=== PATIENT | female | born 1970 | race Caucasian/White ===

== ENCOUNTER → 2020-03-28 15:06 | Outpatient (BNVA) | payer OTHER, SELFPAY | PROVIDERS: PCP Internal Medicine; Referring Provider Internal Medicine; Visit Provider Internal Medicine Pulmonary Disease | DX: Z76.89 Persons encountering health services in other specified circumstances (principal) ==

== ENCOUNTER → 2020-08-02 15:04 | Outpatient (BNVA) | payer OTHER, SELFPAY | PROVIDERS: PCP Internal Medicine; Visit Provider Internal Medicine Pulmonary Disease ==

== ENCOUNTER 2020-10-18 13:05 | Outpatient (REF) | payer OTHER, SELFPAY ==
--- NOTE | ~2020-10-18 | CT_ITS ---
EXAMINATION: CT CHEST SCREENING CLINICAL INFORMATION: Nicotine dependence. COMPARISON: None. TECHNIQUE: Multidetector volumetric CT imaging of the chest is performed without contrast using low dose technique. Additional 2-D coronal and sagittal reformatted images and axial 3-D maximum intensity projection (MIP) images are generated on the CT workstation. This CT examination was performed using dose optimization techniques as appropriate, variously including the following: *Automated exposure control *Adjustment of mA and/or kV according to patient size (this includes techniques or standardized protocols for targeted exams where dose is matched to indication/reason for exam; i.e. extremities or head) *Use of iterative reconstruction technique DLP: 67 mGy-cm FINDINGS: LUNGS: The lungs are well expanded and clear of acute pneumonic process. There is a 3 mm nodule right upper lobe axial image 19/4, 3 mm nodule right upper lobe centrally image 16/4, and 2 mm nodule posteriorly in right upper lobe image 23/4. There is a punctate 2 mm nodule right upper lobe image 209/6, 3 mm nodule right middle lobe axial image 255/6, 6 mm nodule right middle lobe axial image 262/6, and several 2 mm nodules and less in both lower lobes. There is mild left major fissure thickening. A small cyst is seen in the superior segment right lower lobe. MEDIASTINUM: The thyroid lobes are symmetrical and normal. The central trachea and the bronchi are widely patent. The heart size and great vessels are normal caliber. There is no pericardial effusion. No abnormal mediastinal or hilar lymph nodes seen. PLEURA: There is no pleural effusion. No pleural mass or thickening. AXILLA: Small shotty lymph nodes seen in the axilla. UPPER ABDOMEN: Visualized liver, spleen, pancreas and bilateral adrenal glands are unremarkable. The gallbladder has been surgically removed. OSSEOUS STRUCTURES: No lytic or sclerotic process seen. CT/CT lung screening IMPRESSION: Multiple bilateral pulmonary nodules measuring 6 mm and less. ASSESSMENT: Lung-RADS category 2: Benign. RECOMMENDATION: Low dose annual CT chest.
== END 2020-10-18 13:06 | disposition home or self-care (01) ==
LOC: HO.CT 13:05
PROVIDERS: PCP Internal Medicine; Visit Provider Physician Assistant Medical
DX: Z12.2 Encounter for screening for malignant neoplasm of respiratory organs (principal); Z87.891 Personal history of nicotine dependence
CPT/HCPCS: 71271

== ENCOUNTER 2020-11-20 15:26 | Outpatient (REF) | payer OTHER, SELFPAY ==
--- NOTE | ~2020-11-20 | US_ITS ---
EXAMINATION: PELVIC ULTRASOUND CLINICAL INFORMATION: Postmenopausal bleeding COMPARISON: None TECHNIQUE: Transabdominal and transvaginal pelvic ultrasound was performed. Transvaginal exam was performed for better visualization of the uterus and ovaries. FINDINGS: The uterus is anteverted and measures 7.3 x 3.6 x 5.5 cm in dimension. No focal uterine lesion is seen. The endometrium is thickened for a postmenopausal patient measuring 0.9 cm. The endometrium is slightly heterogeneous. The ovaries are not seen. There is no fluid in the pelvis. US/US pelvic and transvaginal IMPRESSION: Abnormally thickened endometrium for a postmenopausal patient. Ovaries not seen.
== END 2020-11-20 15:27 | disposition home or self-care (01) ==
LOC: HO.US 15:26
PROVIDERS: Visit Provider Advanced Practice Midwife
DX: N95.0 Postmenopausal bleeding (principal)
CPT/HCPCS: 76830; 76856

== ENCOUNTER 2020-11-30 14:03 | Outpatient (REF) | payer OTHER, SELFPAY ==
--- NOTE | ~2020-11-30 | MM_ITS ---
EXAMINATION: MM SCREENING DIGITAL BREAST TOMOSYNTHESIS, BILATERAL CLINICAL INFORMATION: Screening. Asymptomatic. The lifetime risk of breast cancer based on the Tyrer-Cuzick Model is 7%. COMPARISON: Mammography: 01/23/2016, 06/29/2014, 11/15/2011 TECHNIQUE: Digital breast tomosynthesis is performed in both the craniocaudal and mediolateral oblique views along with computer-aided detection (CAD). Synthesized 2D images are generated from the tomosynthesis. FINDINGS: There are scattered areas of fibroglandular density (ACR BI-RADS breast composition Category b). There are no significant masses, abnormal calcifications, or other abnormalities. There is no developing density. No architectural abnormality. The axilla and skin contours are unremarkable. No significant changes. MM/MM tomosynthesis screening BI IMPRESSION: No mammographic evidence of malignancy. ASSESSMENT: BI-RADS 1: Negative RECOMMENDATION: Routine annual mammography screening. This patient's information was entered into a reminder system with a target due date for their next mammogram.
== END 2020-11-30 14:04 | disposition home or self-care (01) ==
LOC: HO.MAMMO 14:03
PROVIDERS: PCP Internal Medicine; Visit Provider Advanced Practice Midwife
DX: Z12.31 Encounter for screening mammogram for malignant neoplasm of breast (principal)
CPT/HCPCS: 77063; 77067

== ENCOUNTER → 2020-12-05 15:37 | Outpatient (BNVA) | payer OTHER, SELFPAY | PROVIDERS: PCP Internal Medicine; Visit Provider Internal Medicine Pulmonary Disease ==

== ENCOUNTER 2021-01-17 08:04 | Outpatient (REF) | payer OTHER, SELFPAY ==
[2021-01-20 03:56] LABS: HPV mRNA E6/E7 rflx Not Detected (Not Detected)
== END 2021-01-17 08:05 | disposition home or self-care (01) ==
LOC: HO.LAB 08:04
PROVIDERS: PCP Internal Medicine; Visit Provider Obstetrics & Gynecology
DX: Z01.411 Encounter for gynecological examination (general) (routine) with abnormal findings (principal); Z11.51 Encounter for screening for human papillomavirus (HPV); N95.0 Postmenopausal bleeding
CPT/HCPCS: 58100; 87624; 88142; 88305

== ENCOUNTER → 2021-02-13 13:58 | Outpatient (BNVA) | payer OTHER, SELFPAY | PROVIDERS: PCP Internal Medicine; Visit Provider Obstetrics & Gynecology ==

== ENCOUNTER → 2021-06-12 15:23 | Outpatient (BNVA) | payer OTHER, SELFPAY | PROVIDERS: PCP Internal Medicine; Visit Provider Internal Medicine Pulmonary Disease ==

== ENCOUNTER → 2022-07-02 13:07 | Outpatient (BNVA) | payer OTHER, SELFPAY | PROVIDERS: PCP Internal Medicine; Visit Provider Internal Medicine Pulmonary Disease | DX: Z13.89 Encounter for screening for other disorder (principal) ==

== ENCOUNTER → 2022-09-24 10:24 | Outpatient (BNVA) | payer OTHER, SELFPAY | PROVIDERS: PCP Internal Medicine; Visit Provider Surgery | DX: S80.12XA Contusion of left lower leg, initial encounter (principal) | CPT/HCPCS: 10021; 10160 ==

== ENCOUNTER 2022-11-25 15:00 | Outpatient (REF) | payer OTHER, SELFPAY | END 2022-11-25 15:01 | disposition home or self-care (01) | LOC: HO.MRI 15:00 | PROVIDERS: PCP Internal Medicine; Visit Provider Internal Medicine | DX: Z13.89 Encounter for screening for other disorder (principal) ==

== ENCOUNTER 2022-12-19 13:44 | Outpatient (REF) | payer OTHER, SELFPAY ==
--- NOTE | ~2022-12-19 | MR_ITS ---
EXAMINATION: MR ABDOMEN WITHOUT AND WITH CONTRAST CLINICAL INFORMATION: Hepatic lesion, follow-up. COMPARISON: Chest CT dated 10/18/2020. TECHNIQUE: MR abdomen was performed without and with use of 10 mL intravenous gadolinium gadolinium contrast. Postcontrast images are performed in multiphase dynamic sequences. Imaging was performed in 3 planes. FINDINGS: LUNG BASES: The visualized lung bases are unremarkable. LIVER: Steatosis. GALLBLADDER, AND BILIARY TREE: Status post cholecystectomy. No significant biliary ductal dilatation. PANCREAS: Unremarkable. SPLEEN: Unremarkable. ADRENAL GLANDS: Unremarkable. KIDNEYS AND URETERS: The kidneys are normal in size, shape, and enhance symmetrically. No hydronephrosis. No perinephric stranding. GASTROINTESTINAL TRACT: No bowel obstruction. No ascites or fluid collection. ABDOMINAL WALL: Very small fat-containing umbilical hernia without associated abnormality. LYMPH NODES: No lymphadenopathy. VASCULAR: Unremarkable. OSSEOUS STRUCTURES: Mild degenerative disc disease at L5-S1. No acute/suspicious abnormality. MR/MR abdomen wo/w con IMPRESSION: 1. Hepatic steatosis. No other significant abnormality. 2. Small fat-containing umbilical hernia without associated abnormality.
[2022-12-19] MEDS: gadobutroL 10 ML VIAL IVPUSH (14:31)
== END 2022-12-19 13:45 | disposition home or self-care (01) ==
LOC: HO.MRI 13:44
PROVIDERS: PCP Internal Medicine; Visit Provider Internal Medicine
DX: R16.0 Hepatomegaly, not elsewhere classified (principal)
CPT/HCPCS: 74183; A9585

== ENCOUNTER 2023-01-10 13:11 | Outpatient (AMB) | payer OTHER, SELFPAY ==
[2023-01-10 13:13] VITALS: BP 102/52; PULSE 104; O2SAT 93; BMI 39.8
--- NOTE | 2023-01-10 13:13 | A.OFFVIS_ITS ---
Intake Vital Signs 01/10/23 13:13 Height 5 ft 1 in Weight 210 lb 8.663 oz BMI 39.8 BP 102/52 L Blood Pressure Location Lt brachial Position Sitting Pulse 104 H Pulse Source Doppler Pulse Oximetry (%) 93 Oxygen Delivery Method Room Air Intake Visit Reasons: Asthma Allergies codeine Allergy (Unknown, Verified 01/10/23 13:16) Unknown fluticasone [Advair Diskus] Allergy (Unknown, Verified 01/10/23 13:16) Unknown penicillin V Allergy (Unknown, Verified 01/10/23 13:16) Unknown salmeterol [Advair Diskus] Allergy (Unknown, Verified 01/10/23 13:16) Unknown varenicline Allergy (Unknown, Verified 01/10/23 13:16) Unknown strawberry Allergy (Mild, Uncoded 09/24/22 10:32) Hives lobster Allergy (Uncoded 09/29/20 13:08) Unknown HPI Asthma HPI Details 52-year-old lady active 30 pack-year smo ker followed for underlying mod erate asthma/COPD overlap syndrome.? She has been using Spiriva and Symbicort 160 with good baseline control of her symptoms.? Over the last week she has developed cough productive of yellowish sputum with worsening symptomatic control. [facility] Medical History (Updated 01/10/23 @ 13:25 by Jakub Varela MD) Cholesteatoma Hyperlipidemia Diabetes mellitus type 2, diet-controlled Chronic obstructive pulmonary disease, unspecified Personal history of nicotine dependence Environmental allergies Asthma-COPD overlap syndrome Surgical History (Updated 09/24/22 @ 10:48 by Betito Brown MD) Tubal ligation status Hx of section History of colposcopy with cervical biopsy (~2015) History of cholecystectomy (~1993) Family History Mother Uterine cancer Bone cancer Sister Uterine cancer Social History (Updated 01/10/23 @ 13:17 by MARICRUZ Servin) Alcohol intake: current Alcohol intake frequency: does not drink Patient Tobacco Use Status: Current everyday Tobacco user Tobacco use type: Cigarette Cigarette Packs Per Day: 1 Years Smoked: 34 yrs Female Reproductive History Menstrual Age of Menarche: 10 Review of Systems Const Denies daytime sleepiness, Denies excessive sweating, Denies fatigue, Denies fever(s), Denies lethargy, Denies malaise, Denies night sweats, Denies snoring and Denies weight loss Eyes Denies blurry vision and Denies itchy eyes ENT Denies nasal congestion, Denies post nasal drip, Denies sinus pain, Denies sinus pressure and Denies other ( Thrush) Card Denies chest pain, Denies pedal edema, Denies dyspnea, Denies orthopnea and Denies paroxysmal nocturnal dyspnea Resp Reports cough, Denies hemoptysis, Reports excessive phlegm production, Denies dyspnea, Denies snoring and Denies wheezing GI Denies abdominal pain and Denies heartburn Musc Denies myalgias, Denies arthralgias and Denies joint swelling Skin/Breast Denies rash Neuro Denies memory loss and Denies seizure-like activity Psych Denies abnormal sleep pattern, Denies anxiety and Denies memory loss Endo Denies excessive sweating, Denies fatigue and Denies heat intolerance Pepe/Lymph Denies easy bruising Aller/Immun Denies itchy eyes, Denies seasonal rhinorrhea and Denies wheezing Physical Exam Vital Signs: Last Vital Signs Pulse 104 H 01/10/23 13:13 BP 102/52 L 01/10/23 13:13 Pulse Ox 93 01/10/23 13:13 Oxygen Delivery Method Room Air 01/10/23 13:13 BMI result Body Mass Index 39.8 Const General: no acute distress and alert Nutritional Appearance: not obese Orientation/consciousness: Other orientation findings ( oriented) HEENT Head: Yes atraumatic Eyes General: appearance normal, both eyes and all related structures Sclerae: sclerae normal EOM: EOMs intact bilaterally Neck Neck: Yes supple Lymphatic: no lymphadenopathy noted Resp Effort & Inspection: normal respiratory effort and no use of accessory muscles Auscultation: clear to auscultation bilaterally Cardio Rate: regular rate Rhythm: regular rhythm Heart sounds: no gallops, no murmurs and no rubs Skin General skin exam: other ( warm) Extrem General: No clubbing, No cyanosis and No edema Assessment & Plan Assessment & Plan (1) Asthma-COPD overlap syndrome: Code(s): J44.9 - Chronic obstructive pulmonary disease, unspecified Plan: Baseline controlled on Symbicort, Spiriva, and albuterol MDI. Continue current regimen. Now with an acute exacerbation, will treat with a course of azithromycin. (2) Pulmonary nodules: Code(s): R91.8 - Other nonspecific abnormal finding of lung field Plan: Results of lung strain CT reviewed, no worrisome nodules at this time. Continue with yearly screening, next in September of 2023. Medications: New azithromycin For 250 mg dose pack: take 500 mg today (day 1), then 250 mg for 4 days (days 2-5) PO 6 tabs 0RF Coding Level of Care Code Est Pt Level 4 (72046) Diagnoses Asthma-COPD overlap syndrome J44.9 Pulmonary nodules R91.8
== END 2023-01-10 13:24 | disposition home or self-care (01) ==
PROVIDERS: PCP Internal Medicine; Visit Provider Internal Medicine Pulmonary Disease
DX: J44.9 Chronic obstructive pulmonary disease, unspecified (principal); R91.8 Other nonspecific abnormal finding of lung field
CPT/HCPCS: 99214

== ENCOUNTER → 2023-01-10 13:11 | Outpatient (BNVA) | payer OTHER, SELFPAY | PROVIDERS: PCP Internal Medicine; Visit Provider Internal Medicine Pulmonary Disease ==

== ENCOUNTER 2023-07-15 13:07 | Outpatient (AMB) | payer OTHER, SELFPAY ==
[2023-07-15 13:10] VITALS: BP 104/62; PULSE 100; O2SAT 93; BMI 39.2
--- NOTE | 2023-07-15 13:10 | MHC.OFFVIS ---
Intake Vital Signs 07/15/23 13:10 Height 5 ft 1 in Weight 207 lb 3.752 oz BMI 39.2 BP 104/62 Blood Pressure Location Rt brachial Position Sitting Pulse 100 Pulse Source Doppler Pulse Oximetry (%) 93 Oxygen Delivery Method Room Air Intake Visit Reasons: Asthma Allergies codeine Allergy (Unknown, Verified 07/15/23 13:15) Unknown fluticasone [Advair Diskus] Allergy (Unknown, Verified 07/15/23 13:15) Unknown penicillin V Allergy (Unknown, Verified 07/15/23 13:15) Unknown salmeterol [Advair Diskus] Allergy (Unknown, Verified 07/15/23 13:15) Unknown varenicline Allergy (Unknown, Verified 07/15/23 13:15) Unknown strawberry Allergy (Mild, Uncoded 09/24/22 10:32) Hives lobster Allergy (Uncoded 09/29/20 13:08) Unknown HPI Asthma HPI Details 52-year-old lady active 30 pack-year smoker followed for underlying moderate asthma/COPD overlap syndrome.? She has been using Spiriva and Symbicort 160 with good baseline control of her symptoms.? She does complain of chronic bronchitic cough productive of whitish sputum. She denies an acute exacerbation. COUNT INCLUDES [facility] Medical History (Updated 01/10/23 @ 13:25 by Jakub Varela MD) Cholesteatoma Hyperlipidemia Diabetes mellitus type 2, diet-controlled Chronic obstructive pulmonary disease, unspecified Personal history of nicotine dependence Environmental allergies Asthma-COPD overlap syndrome Surgical History (Updated 09/24/22 @ 10:48 by Betito Brown MD) Tubal ligation status Hx of section History of colposcopy with cervical biopsy (~2015) History of cholecystectomy (~1993) Family History Mother Uterine cancer Bone cancer Sister Uterine cancer Social History Alcohol intake: current Alcohol intake frequency: does not drink Patient Tobacco Use Status: Current everyday Tobacco user Tobacco use type: Cigarette Cigarette Packs Per Day: 1 Years Smoked: 34 yrs Female Reproductive History Menstrual Age of Menarche: 10 Review of Systems Const Denies daytime sleepiness, Denies excessive sweating, Denies fatigue, Denies fever(s), Denies lethargy, Denies malaise, Denies night sweats, Denies snoring and Denies weight loss Eyes Denies blurry vision and Denies itchy eyes ENT Denies nasal congestion, Denies post nasal drip, Denies sinus pain, Denies sinus pressure and Denies other ( Thrush) Card Denies chest pain, Denies pedal edema, Denies dyspnea, Denies orthopnea and Denies paroxysmal nocturnal dyspnea Resp Reports cough, Denies hemoptysis, Denies excessive phlegm production, Denies dyspnea, Denies snoring and Denies wheezing GI Denies abdominal pain and Denies heartburn Musc Denies myalgias, Denies arthralgias and Denies joint swelling Skin/Breast Denies rash Neuro Denies memory loss and Denies seizure-like activity Psych Denies abnormal sleep pattern, Denies anxiety and Denies memory loss Endo Denies excessive sweating, Denies fatigue and Denies heat intolerance Pepe/Lymph Denies easy bruising Aller/Immun Denies itchy eyes, Denies seasonal rhinorrhea and Denies wheezing Physical Exam Vital Signs: Last Vital Signs Pulse 100 07/15/23 13:10 BP 104/62 07/15/23 13:10 Pulse Ox 93 07/15/23 13:10 Oxygen Delivery Method Room Air 07/15/23 13:10 BMI result Body Mass Index 39.2 Const General: no acute distress and alert Nutritional Appearance: obese Orientation/consciousness: Other orientation findings ( oriented) HEENT Head: Yes atraumatic Eyes General: appearance normal, both eyes and all related structures Sclerae: sclerae normal EOM: EOMs intact bilaterally Neck Neck: Yes supple Lymphatic: no lymphadenopathy noted Resp Effort & Inspection: normal respiratory effort and no use of accessory muscles Auscultation: clear to auscultation bilaterally Cardio Rate: regular rate Rhythm: regular rhythm Heart sounds: no gallops, no murmurs and no rubs Skin General skin exam: other ( warm) Extrem General: No clubbing, No cyanosis and No edema Assessment & Plan Assessment & Plan (1) Asthma-COPD overlap syndrome: Code(s): J44.9 - Chronic obstructive pulmonary disease, unspecified Plan: Well controlled on current regimen of Symbicort, Spiriva, and albuterol MDI. Continue current regimen. Chronic bronchitis, will treat with a course of azithromycin and put on azithromycin suppressive therapy. (2) Personal history of nicotine dependence: Comment: (Current smoker, onset 15, 1ppd x 35yrs, now 5-10cig/day, 35PYH) Code(s): Z87.891 - Personal history of nicotine dependence Plan: CT lung cancer screening ordered for September of 2023. Orders: Orders CT lung screening 10/15/23 Z87.891 - Personal history of nicotine dependence Medications: New azithromycin For 250 mg dose pack: take 500 mg today (day 1), then 250 mg for 4 days (days 2-5) PO 6 tabs 0RF azithromycin Suppressive regimen, start after finishing Z-pack. 250 mg PO MOWEFR 13 tabs 6RF 30 days Discontinued azithromycin Discontinued Reason: Doctor's Order For 250 mg dose pack: take 500 mg today (day 1), then 250 mg for 4 days (days 2-5) PO 6 tabs 0RF Coding Level of Care Code Est Pt Level 4 (58505) Diagnoses Asthma-COPD overlap syndrome J44.9 Personal history of nicotine dependence Z87.891
== END 2023-07-15 13:37 | disposition home or self-care (01) ==
PROVIDERS: PCP Internal Medicine; Visit Provider Internal Medicine Pulmonary Disease
DX: J44.9 Chronic obstructive pulmonary disease, unspecified (principal); Z87.891 Personal history of nicotine dependence
CPT/HCPCS: 99214

== ENCOUNTER → 2023-07-15 13:07 | Outpatient (BNVA) | payer OTHER, SELFPAY | PROVIDERS: PCP Internal Medicine; Visit Provider Internal Medicine Pulmonary Disease ==

== ENCOUNTER 2023-10-15 09:57 | Outpatient (REF) | payer OTHER, SELFPAY ==
--- NOTE | ~2023-10-15 | CT_ITS ---
EXAMINATION: CT LOW-DOSE SCREENING CHEST WITHOUT CONTRAST CLINICAL INFORMATION: Personal history of nicotine dependence. The patient is a current smoker with a 70 pack-year history of smoking. COMPARISON: CT chest 10/18/2020. TECHNIQUE: Multidetector volumetric CT imaging of the chest is performed on a Siemens SOMATOM Definition scanner without contrast using low dose technique. Additional 2D coronal and sagittal reformatted images and axial 3D maximum intensity projection (MIP) images are generated on the CT workstation. This CT examination was performed using dose optimization techniques as appropriate, variously including the following: *Automated exposure control. *Adjustment of mA and/or kV according to patient size (this includes techniques or standardized protocols for targeted exams where dose is matched to indication/reason for exam; i.e. extremities or head). *Use of iterative reconstruction technique. TOTAL EXAM DLP: 70 mGy-cm CTDIvol: 2.10 mGy FINDINGS: PULMONARY NODULES: A number of small pulmonary nodules are present, none larger than 4 mm (for example, right lower lobe 5:310 compare prior 5:307). Rubio images of all have been saved. No new, increasing-sized or suspicious pulmonary nodules seen. LUNGS: Lungs bilaterally symmetrically expanded. There is moderate emphysema and mild bronchial thickening. Plate-like atelectasis present along the major fissure in the left upper lobe as well as on top of the middle fissure in the right upper lobe. No effusion or pneumothorax. Central airways patent. MEDIASTINUM: No mediastinal, hilar or axillary adenopathy or free fluid collection. CORONARY ARTERY CALCIFICATION: None visualized on this study. THYROID GLAND: Unremarkable to the extent seen. CARDIOVASCULAR STRUCTURES: Aortic and heart size normal. No pericardial effusion. CHEST WALL/AXILLA: Unremarkable. UPPER ABDOMEN: There is hepatic steatosis. Spleen is enlarged at 12.3 cm. Status post cholecystectomy. Suspect hepatomegaly but the liver is not all included. OSSEOUS STRUCTURES: No suspicious focal findings. CT/CT lung screening IMPRESSION: 1. No evidence of pulmonary malignancy. There are small benign unchanged micronodules. 2. Incidental note made of emphysema, hepatic steatosis and mild splenomegaly. 3. Incidental findings (s category): No significant incidental findings. ASSESSMENT: Lung-RADS Category 2: Benign appearance or behavior of nodules. N/A. RECOMMENDATION: Continued routine annual low-dose CT lung screening in 1 year is recommended. An order for CT CHEST LOW DOSE CANCER SCREENING ([id number]) can be placed.
== END 2023-10-15 09:58 | disposition home or self-care (01) ==
LOC: HO.CT 09:57
PROVIDERS: PCP Internal Medicine; Visit Provider Internal Medicine Pulmonary Disease
DX: Z12.2 Encounter for screening for malignant neoplasm of respiratory organs (principal); Z87.891 Personal history of nicotine dependence
CPT/HCPCS: 71271

== ENCOUNTER 2023-11-17 19:00 | Outpatient (REF) | payer OTHER, SELFPAY ==
[2023-11-20 12:02] LABS: HPV mRNA E6/E7 Not Detected (Not Detected)
== END 2023-11-17 19:01 | disposition home or self-care (01) ==
LOC: HO.HHCLNP 19:00
PROVIDERS: Visit Provider Advanced Practice Midwife
DX: Z12.4 Encounter for screening for malignant neoplasm of cervix (principal)
CPT/HCPCS: 36415; 87624; 88175

== ENCOUNTER 2023-11-25 12:51 | Outpatient (REF) | payer OTHER, SELFPAY ==
--- NOTE | ~2023-11-25 | MM_ITS ---
EXAMINATION: MM SCREENING DIGITAL BREAST TOMOSYNTHESIS, BILATERAL CLINICAL INFORMATION: Screening. Asymptomatic. COMPARISON: Mammography: This study is compared with prior exams dating back to 2016. TECHNIQUE: Digital breast tomosynthesis is performed in both the craniocaudal and mediolateral oblique views along with computer-aided detection (CAD). Synthesized 2D images are generated from the tomosynthesis. FINDINGS: There are scattered areas of fibroglandular density (ACR BI-RADS breast composition Category b). There are no significant masses, abnormal calcifications, or other abnormalities. MM/MM tomosynthesis screening BI IMPRESSION: No mammographic evidence of malignancy. ASSESSMENT: BI-RADS BI-RADS 1 - Negative RECOMMENDATION: Routine annual mammography screening. 1 year F/U This examination should not preclude the clinical evaluation of a suspicious palpable abnormality. This patient's information was entered into a reminder system with a target due date for their next mammogram.
== END 2023-11-25 12:52 | disposition home or self-care (01) ==
LOC: HO.MAMMO 12:51
PROVIDERS: PCP Internal Medicine; Visit Provider Advanced Practice Midwife
DX: Z12.31 Encounter for screening mammogram for malignant neoplasm of breast (principal)
CPT/HCPCS: 77063; 77067

== ENCOUNTER → 2023-11-25 13:00 | Outpatient (BNV) | payer OTHER, SELFPAY | PROVIDERS: PCP Internal Medicine; Visit Provider Radiology Diagnostic Radiology | DX: Z12.31 Encounter for screening mammogram for malignant neoplasm of breast (principal) | CPT/HCPCS: 77063; 77067 ==

== ENCOUNTER 2024-01-21 13:32 | Outpatient (AMB) | payer OTHER, SELFPAY ==
[2024-01-21 13:40] VITALS: BP 106/67; PULSE 110; O2SAT 92; BMI 39.2
--- NOTE | 2024-01-21 13:40 | A.OFFVIS_ITS ---
Vital Signs 01/21/24 13:40 Height 5 ft 1 in Weight 207 lb 3.752 oz BMI 39.2 BP 106/67 Blood Pressure Location Lt brachial Position Sitting Pulse 110 H Pulse Source Doppler Pulse Oximetry (%) 92 Oxygen Delivery Method Room Air Intake Visit Reasons: Asthma Allergies codeine Allergy (Unknown, Verified 07/15/23 13:15) Unknown fluticasone [Advair Diskus] Allergy (Unknown, Verified 07/15/23 13:15) Unknown penicillin V Allergy (Unknown, Verified 07/15/23 13:15) Unknown salmeterol [Advair Diskus] Allergy (Unknown, Verified 07/15/23 13:15) Unknown varenicline Allergy (Unknown, Verified 07/15/23 13:15) Unknown strawberry Allergy (Mild, Uncoded 09/24/22 10:32) Hives lobster Allergy (Uncoded 09/29/20 13:08) Unknown HPI HPI Asthma: Details: 52-year-old lady active 30 pack-year smoker followed for underlying moderate asthma/COPD overlap syndrome.? She has been using Spiriva and Symbicort 160 previously with good baseline control of her symptoms until she had ran out of Symbicort and now his symptoms are not as well controlled. Though, she denies an acute exacerbation. She has been using suppressive azithromycin with good control of her chronic bronchitis. [facility] Medical History (Updated 01/10/23 @ 13:25 by Jakub Varela MD) Cholesteatoma Hyperlipidemia Diabetes mellitus type 2, diet-controlled Chronic obstructive pulmonary disease, unspecified Personal history of nicotine dependence Environmental allergies Asthma-COPD overlap syndrome Surgical History (Updated 09/24/22 @ 10:48 by Betito Brown MD) Tubal ligation status Hx of section History of colposcopy with cervical biopsy (~2015) History of cholecystectomy (~1993) Family History Mother Uterine cancer Bone cancer Sister Uterine cancer Social History Alcohol intake: current Alcohol intake frequency: does not drink Patient Tobacco Use Status: Current everyday Tobacco user Tobacco use type: Cigarette Cigarette Packs Per Day: 1 Years Smoked: 35 yrs Female Reproductive History Menstrual Age of Menarche: 10 Review of Systems Const Denies daytime sleepiness, Denies excessive sweating, Denies fatigue, Denies fever(s), Denies lethargy, Denies malaise, Denies night sweats, Denies snoring and Denies weight loss Eyes Denies blurry vision and Denies itchy eyes ENT Denies nasal congestion, Denies post nasal drip, Denies sinus pain, Denies sinus pressure and Denies other ( Thrush) Card Denies chest pain, Denies pedal edema, Denies dyspnea, Denies orthopnea and Denies paroxysmal nocturnal dyspnea Resp Denies cough, Denies hemoptysis, Denies excessive phlegm production, Denies dyspnea, Denies snoring and Denies wheezing GI Denies abdominal pain and Denies heartburn Musc Denies myalgias, Denies arthralgias and Denies joint swelling Skin/Breast Denies rash Neuro Denies memory loss and Denies seizure-like activity Psych Denies abnormal sleep pattern, Denies anxiety and Denies memory loss Endo Denies excessive sweating, Denies fatigue and Denies heat intolerance Pepe/Lymph Denies easy bruising Aller/Immun Denies itchy eyes, Denies seasonal rhinorrhea and Denies wheezing Physical Exam Vital Signs: Last Vital Signs Pulse 110 H 01/21/24 13:40 BP 106/67 01/21/24 13:40 Pulse Ox 92 01/21/24 13:40 Oxygen Delivery Method Room Air 01/21/24 13:40 BMI result Body Mass Index 39.2 Const General: no acute distress and alert Nutritional Appearance: obese Orientation/consciousness: Other orientation findings ( oriented) HEENT Head: Yes atraumatic Eyes General: appearance normal, both eyes and all related structures Sclerae: sclerae normal EOM: EOMs intact bilaterally Neck Neck: Yes supple Lymphatic: no lymphadenopathy noted Resp Effort & Inspection: normal respiratory effort and no use of accessory muscles Auscultation: rales bilateral Cardio Rate: regular rate Rhythm: regular rhythm Heart sounds: no gallops, no murmurs and no rubs Skin General skin exam: other ( warm) Extrem General: No clubbing, No cyanosis and No edema Assessment & Plan Assessment & Plan (1) Asthma-COPD overlap syndrome: Code(s): J44.9 - Chronic obstructive pulmonary disease, unspecified Category: Medical Plan: suboptimal control as patient has ran out of Symbicort. Restart Symbicort. Continue Spiriva and albuterol MDI /duo nebs. Continue suppressive azithromycin. (2) Personal history of nicotine dependence: Comment: (Current smoker, onset 15, 1ppd x 35yrs, now 5-10cig/day, 35PYH) Code(s): Z87.891 - Personal history of nicotine dependence Category: Medical Plan: Results of lung cancer screening CT chest from September of 2023 reviewed, no worrisome pulmonary nodules. Continue with yearly screening, next in September of 2024. Medications: New ipratropium-albuterol 0.5 mg-3 mg(2.5 mg base)/3 mL 3 mL inhalation Q4-6H PRN 180 mL 6RF wheezing Refilled budesonide-formoterol 160-4.5 mcg/actuation (Symbicort) 2 puffs inhalation BID 10.2 ea 6RF Coding Level of Care Code Est Pt Level 4 (49376) Diagnoses Asthma-COPD overlap syndrome J44.9 Personal history of nicotine dependence Z87.891
== END 2024-01-21 13:53 | disposition home or self-care (01) ==
PROVIDERS: PCP Internal Medicine; Visit Provider Internal Medicine Pulmonary Disease
DX: J44.9 Chronic obstructive pulmonary disease, unspecified (principal); Z87.891 Personal history of nicotine dependence
CPT/HCPCS: 99214

== ENCOUNTER → 2024-01-21 13:32 | Outpatient (BNVA) | payer OTHER, SELFPAY | PROVIDERS: PCP Internal Medicine; Visit Provider Internal Medicine Pulmonary Disease ==

== ENCOUNTER 2024-01-22 14:21 | Outpatient (REF) | payer OTHER, SELFPAY ==
[2024-01-22 18:53] LABS: MANUAL DIFF FLAG NO
[2024-01-22 18:57] LABS: Basophils Absolute Auto 0.1 X10*3/uL (0.0-0.2); Basophils Percent Auto 0.7 % (0-2); Eosinophils Absolute Auto 0.2 X10*3/uL (0.0-0.4); Eosinophils Percent Auto 1.9 % (0-4); Hematocrit 50.4 % (37.0-47.0); Hemoglobin 17.3 g/dl (12.0-16.0); Imm Gran Abs Auto 0.08 X10*3/uL (0.00-0.03); Imm Gran Pct Auto 0.7 % (0.0-0.4); Lymphocytes Percent Auto 25.1 % (20-40); Mean Corpuscular HGB Conc 34.3 g/dl (31.0-35.0); Mean Corpuscular Hemoglobin 31.5 pg (27.0-33.0); Mean Corpuscular Volume 91.8 fL (80.0-98.0); Monocytes Absolute Auto 0.8 X10*3/uL (0.1-1.2); Monocytes Percent Auto 6.7 % (2-11); Neutrophils Absolute Auto 7.6 x10*3/uL (2.0-8.3); Neutrophils Percent Auto 64.9 % (45-73); Platelet Count 441 X10*3/uL (160-400); Red Blood Count 5.49 X10*6/uL (4.20-5.50); Red Cell Distribution Width 13.3 % (11.0-16.0); White Blood Count 11.7 X10*3/uL (4.8-10.8)
[2024-01-22 19:15] LABS: Alanine Aminotransferase 21 U/L (0-31); Albumin Level 4.4 g/dL (3.5-5.0); Alkaline Phosphatase 84 U/L (39-117); Anion Gap 13 (12-20); Aspartate Amino Transferase 19 U/L (5-31); Bilirubin Total 0.4 mg/dL (0.0-1.0); Blood Urea Nitrogen 20 mg/dL (9-16); Carbon Dioxide 25 mmol/L (22-29); Chloride 103 mmol/L (96-108); Cholesterol 164 mg/dL (<200); Estimated Glomerular Filt Rate > 60; Glucose Random 192 mg/dL (60-115); HDL Cholesterol 35 mg/dL (>40); LDL Cholesterol Calculated 97 mg/dL (<100); Magnesium 1.9 mg/dL (1.6-2.6); Potassium 4.3 mmol/L (3.3-5.1); Sodium 137 mmol/L (135-145); Total Protein 7.9 g/dL (6.5-8.0); Triglycerides 164 mg/dL (<150)
[2024-01-22 19:31] LABS: Microalbum/Creatinine Ratio Ur 11.9 ug/mg cr (<30)
[2024-01-22 19:31] LABS: TSH reflex Free T4 0.98 uIU/mL (0.32-4.0); Vitamin D 25-OH Total 38.7 ng/mL (>30)
[2024-01-22 19:39] LABS: Vitamin B12 751 pg/mL (200-900)
== END 2024-01-22 14:22 | disposition home or self-care (01) ==
LOC: HO.CHCLDS 14:21
PROVIDERS: Visit Provider Internal Medicine
DX: R53.83 Other fatigue (principal); E11.9 Type 2 diabetes mellitus without complications
CPT/HCPCS: 36415; 80053; 80061; 82043; 82306; 82570; 82607; 82746; 83735; 84443; 85025

== ENCOUNTER 2024-07-23 13:29 | Outpatient (AMB) | payer OTHER, SELFPAY ==
[2024-07-23 13:33] VITALS: BP 96/60; PULSE 101; O2SAT 93; BMI 37.0
--- NOTE | 2024-07-23 13:33 | A.OFFVIS_ITS ---
Vital Signs 07/23/24 13:33 Height 5 ft 1 in Weight 196 lb BMI 37.0 BP 96/60 Blood Pressure Location Lt brachial Position Sitting Pulse 101 H Pulse Source Doppler Pulse Oximetry (%) 93 Oxygen Delivery Method Room Air Intake Visit Reasons: Asthma Allergies codeine Allergy (Unknown, Verified 07/23/24 13:37) Unknown fluticasone [Advair Diskus] Allergy (Unknown, Verified 07/23/24 13:37) Unknown penicillin V Allergy (Unknown, Verified 07/23/24 13:37) Unknown salmeterol [Advair Diskus] Allergy (Unknown, Verified 07/23/24 13:37) Unknown varenicline Allergy (Unknown, Verified 07/23/24 13:37) Unknown strawberry Allergy (Mild, Uncoded 09/24/22 10:32) Hives lobster Allergy (Uncoded 09/29/20 13:08) Unknown HPI HPI Asthma: Details: 53-year-old lady active 30 pack-year smoker followed for underlying moderate asthma/COPD overlap syndrome.? She has been using Spiriva, duo nebs, albuterol MDI, and Symbicort 160 with good control of her symptoms. She denies recent exacerbations. [facility] Medical History (Updated 01/10/23 @ 13:25 by Jakub Varela MD) Cholesteatoma Hyperlipidemia Diabetes mellitus type 2, diet-controlled Chronic obstructive pulmonary disease, unspecified Personal history of nicotine dependence Environmental allergies Asthma-COPD overlap syndrome Surgical History (Updated 09/24/22 @ 10:48 by Betito Brown MD) Tubal ligation status Hx of section History of colposcopy with cervical biopsy (~2015) History of cholecystectomy (~1993) Family History Mother Uterine cancer Bone cancer Sister Uterine cancer Social History Alcohol intake: current Alcohol intake frequency: does not drink Patient Tobacco Use Status: Current everyday Tobacco user Tobacco use type: Cigarette Cigarette Packs Per Day: 1 Years Smoked: 34 yrs Female Reproductive History Menstrual Age of Menarche: 10 Review of Systems Const Denies daytime sleepiness, Denies excessive sweating, Denies fatigue, Denies fever(s), Denies lethargy, Denies malaise, Denies night sweats, Denies snoring and Denies weight loss Eyes Denies blurry vision and Denies itchy eyes ENT Denies nasal congestion, Denies post nasal drip, Denies sinus pain, Denies sinus pressure and Denies other ( Thrush) Card Denies chest pain, Denies pedal edema, Denies dyspnea, Denies orthopnea and Denies paroxysmal nocturnal dyspnea Resp Denies cough, Denies hemoptysis, Denies excessive phlegm production, Denies dyspnea, Denies snoring and Denies wheezing GI Denies abdominal pain and Denies heartburn Musc Denies myalgias, Denies arthralgias and Denies joint swelling Skin/Breast Denies rash Neuro Denies memory loss and Denies seizure-like activity Psych Denies abnormal sleep pattern, Denies anxiety and Denies memory loss Endo Denies excessive sweating, Denies fatigue and Denies heat intolerance Pepe/Lymph Denies easy bruising Aller/Immun Denies itchy eyes, Denies seasonal rhinorrhea and Denies wheezing Physical Exam Vital Signs: Last Vital Signs Pulse 101 H 07/23/24 13:33 BP 96/60 07/23/24 13:33 Pulse Ox 93 07/23/24 13:33 Oxygen Delivery Method Room Air 07/23/24 13:33 BMI result Body Mass Index 37.0 Const General: no acute distress and alert Nutritional Appearance: obese Orientation/consciousness: Other orientation findings ( oriented) HEENT Head: Yes atraumatic Eyes General: appearance normal, both eyes and all related structures Sclerae: sclerae normal EOM: EOMs intact bilaterally Neck Neck: Yes supple Lymphatic: no lymphadenopathy noted Resp Effort & Inspection: normal respiratory effort and no use of accessory muscles Auscultation: clear to auscultation bilaterally Cardio Rate: regular rate Rhythm: regular rhythm Heart sounds: no gallops, no murmurs and no rubs Skin General skin exam: other ( warm) Extrem General: No clubbing, No cyanosis and No edema Assessment & Plan Assessment & Plan (1) Asthma-COPD overlap syndrome: Code(s): J44.9 - Chronic obstructive pulmonary disease, unspecified Category: Medical Plan: Well controlled on current regimen Spiriva, Symbicort, duo nebs, and albuterol MDI. Continue current regimen. (2) Personal history of nicotine dependence: Comment: (Current smoker, onset 15, 1ppd x 35yrs, now 5-10cig/day, 35PYH) Code(s): Z87.891 - Personal history of nicotine dependence Category: Medical Plan: Continue with yearly screening, next in September of 2024, ordered. Orders: Orders CT lung screening 10/23/24 Z87.891 - Personal history of nicotine dependence Coding Level of Care Code Est Pt Level 4 (35933) Diagnoses Asthma-COPD overlap syndrome J44.9 Personal history of nicotine dependence Z87.891
== END 2024-07-23 13:50 | disposition home or self-care (01) ==
LOC: HO.HPS 13:30
PROVIDERS: PCP Internal Medicine; Visit Provider Internal Medicine Pulmonary Disease
DX: J44.9 Chronic obstructive pulmonary disease, unspecified (principal); Z87.891 Personal history of nicotine dependence
CPT/HCPCS: 99214

== ENCOUNTER → 2024-07-23 13:29 | Outpatient (BNVA) | payer OTHER, SELFPAY | PROVIDERS: PCP Internal Medicine; Visit Provider Internal Medicine Pulmonary Disease | DX: J44.9 Chronic obstructive pulmonary disease, unspecified (principal); Z87.891 Personal history of nicotine dependence | CPT/HCPCS: 99212 ==

== ENCOUNTER 2024-10-18 13:00 | Outpatient (REF) | payer OTHER, SELFPAY ==
--- NOTE | ~2024-10-18 | CT_ITS ---
EXAMINATION: CT LUNG SCREENING HISTORY: Z87.891 - Personal history of nicotine dependence TECHNIQUE: Low dose axial images were obtained from the sternal notch to upper abdomen without IV contrast per standard departmental protocol. Sagittal and coronal reformatted images were also obtained and reviewed. One or more of the following techniques was used for dose reduction: Automated exposure control, adjustment of the mA and/or kV according to patient size, use of iterative reconstruction technique. DLP: 70 mGy-cm COMPARISON: Comparison is made with the prior examination dated 10/15/2023. FINDINGS: Lung nodules: There is new confluent airspace opacity in the left upper lobe with associated volume loss and shift of the cardiomediastinal silhouette to the left. There is irregular narrowing and abrupt occlusion of the left upper lobe bronchus, highly suspicious for a mass. Again seen are scattered 2-3 mm nodules in the right upper lobe (series 4, image 66), and in the right middle lobe (series 4, images 94 and 100). There is linear subsegmental atelectasis versus scarring in the right lower lobe. Emphysema: moderate Coronary Calcification: none Aortic Arch Calcification: mild Potentially Significant Incidentals : none Additional Chest Findings: There is no pleural or pericardial effusion. No mediastinal or axillary lymphadenopathy is identified. Visualized upper abdomen: The visualized portions of the liver, spleen, and adrenals have an unremarkable unenhanced appearance. CT/CT lung screening IMPRESSION: Findings highly suspicious for a left perihilar mass causing obstruction of the left upper lobe bronchus and post-obstructive atelectasis. Further evaluation with 3 month low-dose chest CT, PET/CT scan and/or bronchoscopy is recommended. Findings were sent to Dr. Jakub Varela by secure text message on 10/18/2024 at 2:17 PM and acknowledged as read at 2:19 pm. LUNG-RADS ASSESSMENT: Lung-RADS 4A: Suspicious MANAGEMENT: 3 month LDCT, PET/CT and/or bronchoscopy Category S: N/A Electronically signed by: Austin Soares MD 10/18/2024 02:21 PM EDT
--- OUTSIDE RECORDS SUMMARY | 2024-10-18 14:24 | XMS_ITS | Data Portability ---
Author Organization [facility]IS[facility] Patterson [facility], [address] Address [address] [place] [address] Assessment No assessment recorded. Plan of Treatment Reminders Order Date Submit Date Provider Last Modified By Organization Details Last Modified Time Details Appointments None recorded. Lab None recorded. Referral None recorded. Procedures None recorded. Surgeries None recorded. Imaging None recorded. Medication Orders doxycycline hyclate 100 mg tablet 2022 023 [facility] #[id number], [address] [facility], [place], [address], 14:08:16 Patient TargetsNo targets recorded. Patient Instructions Encounter Date Encounter Id Patient Instructions Last Modified By Organization Details Last Modified Time 10/23/2022 [id number] Acute Sinusitis: Care Instructions [email or web address] Not available 10/23/2022 14:08:14 Acute bronchitis is a common clinical condition characterized by an acute onset but persistent cough, with or without sputum production. It is typically self-limited, resolving within one to three weeks. Symptoms result from inflammation of the lower respiratory tract and are most frequently due to viral infection. Treatment is focused on patient education and supportive care. Antibiotics are not needed for the great majority of patients with acute bronchitis but are greatly overused for this condition. Reducing antibiotic use for acute bronchitis is a national and international health care priority. In most patients, the cough persists for 1 to 3 weeks, with a average duration of 18 days. The cough may be associated with either purulent or nonpurulent sputum production The presence of purulent sputum is a nonspecific finding and does not appear to be predictive of bacterial infection or that antibiotics are needed. For the great majority of patients, use of antibiotics does not hasten recovery or prevent complications but puts patients at increased risk of adverse effects including potentially severe complications such as Clostridioides difficile infection and anaphylaxis. Non-Pharmacological treatment for coughin. Throat lozenges 2. Hot tea 3. Honey 4. Smoking cessation 5. Avoidance of secondhand smoke. Pharmacological Treatment: 1. Robatussin or Guafenasin 2. Antihistamines 3. Dextromethoraphen I would plan on being seen again if any of the following symptoms develop: 1. Fever (100.5) 2. Shortness of breath 3. Wheezing 4. Worsening Cough. I would go to the ER if you develop: 1. Severe Shortness of breath 2. Chest Pain 3. Wheezing 4. Coughing up Blood [email or web address] Not available 10/23/2022 14:07:50 Reason for Referral None Reported. Problems Name Problem SNOMED Code Status Onset Date Resolution Date Notes Provider Name and Address Organization Details Recorded Time Hypertensive disorder 66160615 Active 2022 GERA robles, [place] - [facility] 13:26:41 Hyperlipidemia 99375899 Active 2022 GERA GUZMÁN null, [place] - [facility] 13:26:46 Asthma 781905332 Active 2022 GERA GUZMÁN null, [place] - [facility] 13:26:52 Chronic obstructive pulmonary disease 63701487 Active 2022 GERA GUZMÁN null, [place] - [facility] 13:26:57 Diabetes mellitus 75744172 Active 2022 GERA robles, [place] - [facility] 13:27:02 Problem Notes None recorded. Procedures Surgical History Date Name Laterality Status Provider Name and Address Organization Details Recorded Time cholecystectomy completed EGRA GUZMÁN PA - [facility] 10/23/2022 13:27:20 delivery completed GERA GUZMÁN PA - [facility] 10/23/2022 13:27:27 procedure on ear completed GERA GUZMÁN PA - [facility] 10/23/2022 13:27:31 Imaging Results None recorded. Procedure Notes None recorded. Medical Equipment None Reported. Allergies Allergen ID Allergen Name Allergen Category Reaction Reaction Severity Criticality Documentation Date Start Date Code Code System Note Provider Name and Address Organization Details Recorded Time 533152 Product containin g penicilli n (product) medicatio n Not available Not available Not available 10/23/2022 67026 8001 SNOMED GERA FARRELLLUKAS null, [place] - [facility] 13:23:59 468324 codeine medicatio n Not available Not available Not available 10/23/2022 2670 RxNorm GERA FARRELLLUKAS null, [place] - [facility] 13:24:03 243286 shellfish derived food,medi cation Not available Not available Not available 10/23/2022 61243 UNK GERA FARRELLLUKAS null, PA - [facility] 13:24:09 843657 strawberr y allergeni c extract food Not available Not available Not available 10/23/2022 68613 4 RxNorm GERA FARRELLLUKAS null, [place] - [facility] 13:24:34 711509 tree nut food Not available Not available Not available 10/23/2022 36347 UNKaci GUZMÁN null, PA - [facility] 13:24:39 Medications Name Sig Start Date Stop Date Status Note LastModified by Organization Details LastModified Time doxycycline hyclate 100 mg tablet Take 1 tablet twice a day by oral route for 10 days. 2022 active Not Available Not Available Not Avai lable loratadine active Not Available Not Av ailable Not Available simvastatin active Not Available Not A vailable Not Available lisinopril active Not Available Not Av ailable Not Available fenofibrate active Not Available Not A vailable Not Available ProAir HFA active Not Available Not Av ailable Not Available Symbicort active Not Available Not Millie ilable Not Available Spiriva Respimat active Not Available Not Available Not Available Flonase Allergy Relief active Not Available Not Available Not Available albuterol 90 mcg-budesoni de 80 mcg/actuatio n HFA aerosol inhaler Inhale by inhalation route. active Not Available Not Available No t Available Vitals Date Recorded Body height Body mass index (BMI) Body weight Oxygen saturation Oxygen saturation in Arterial blood by Pulse oximetry Heart rate Respiratory rate Body temperature Systolic blood pressure Diastolic blood pressure Provider Name and Address Organization Details Last Updated DateTime 152.4 cm 40.2 kg/m2 32881.0 3 g 95 % 95 % 91 /min 18 /min 98.1 [degF] 117 mm[Hg] 81 mm[Hg] [facility]ER[facility] 13:29:53 Social History Question Answer Notes LastModified by [employer] Details LastModified Time Tobacco Smoking Status Current Every Day Smoker [facility] 10/23/2022 13:27:50 Have You Had Direct Contact, Or Contact During Intimacy, With Monkeypox Rash, Scabs, Or Body Fluids From A Person With Monkeypox? No Information not available 10/23/2022 How Much Tobacco Do You Smoke? 1 PPD Information not available 10/23/2022 Have You Recently Traveled Abroad? No Information not available 10/23/2022 Sex: Unknown Functional Status Question Answer Note LastModified by [employer] Details LastModified Time Do you use any illicit or recreational drugs? No Information not available 10/23/2022 Do you or have you ever used any other forms of tobacco or nicotine? No Information not available 10/23/2022 What is your level of alcohol consumption? None Information not available 10/23/2022 Mental Status None recorded. Family History Relationship Description Onset Age of this Age Resolved Age Notes LastModified by Organization Details LastModified Time Father No current problems or disability Not available 09/27 13:27:05 Mother No current problems or disability Not available 09/27 13:27:05 Medical History No medical history recorded. Gynecological History Statement/Question Response Is there any chance of ? No Obstetrics History GPAL:G 0 P 0 0 0 0 Immunizations Vaccine Type Date Status Note Provider Nam e and Address Organization Details Recorded Time Influenza, split virus, quadrivalent, preservative 8 completed MALISSA [facility] 10/23/2022 13:24:56 COVID-19, mRNA, LNP-S, PF, 100 mcg/0.5mL dose or 50 mcg/0.25mL dose 2 completed GERA GOODHIND null, PA - [facility] 10/23/2022 13:24:56 COVID-19, mRNA, LNP-S, PF, 100 mcg/0.5mL dose or 50 mcg/0.25mL dose 1 completed GERA GOODHIND null, PA - [facility] 10/23/2022 13:24:56 COVID-19, mRNA, LNP-S, PF, 100 mcg/0.5mL dose or 50 mcg/0.25mL dose 1 completed GERA GOODHIND null, PA - [facility] 10/23/2022 13:24:56 Tdap 8 completed GERA GOODHIND null, PA - [facility] 10/23/2022 13:24:56 Tdap 2 completed GERA GOODHIND null, PA - [facility] 10/23/2022 13:24:56 Influenza, split virus, quadrivalent, PF 1 completed GERA GOODHIND null, PA - [facility] 10/23/2022 13:24:56 Influenza, split virus, quadrivalent, PF 6 completed GERA GOODHIND null, PA - [facility] 10/23/2022 13:24:56 Influenza, split virus, quadrivalent, PF 7 completed GERA GOODHIND null, PA - [facility] 10/23/2022 13:24:56 Influenza, split virus, quadrivalent, PF 9 completed GERA GOODHIND null, PA - [facility] 10/23/2022 13:24:56 Influenza, split virus, quadrivalent, PF 1 completed GERA GOODHIND null, PA - [facility] 10/23/2022 13:24:56 Past Encounters Encounter ID Performer Location Encounter Start Date Encounter Closed Date Diagnosis/Indication Diagnosis SNOMED-CT Code Diagnosis ICD10 Code Diagnosis Note [id number] [address] [place] [address] 07/15/2021 08:37:00 07/15/2021 09:40:01 [id number] [address] [place] [address] 11/07/2020 12:02:45 11/07/2020 13:16:13 [id number] [address] [place] [address] 06/03/2015 09:53:06 06/03/2015 10:48:33 [id number] [address] [place] [address] 11/28/2021 17:43:38 11/28/2021 19:38:38 [id number] [address] [place] [address] 05/01/2018 14:24:11 05/01/2018 15:18:15 [id number] [address] [place] [address] 02/15/2021 13:32:04 02/15/2021 15:44:30 [id number] MALISSA BRAND [address] [place] [address] 10/23/2022 12:05:57 10/23/2022 14:08:37 Acute sinusitis [id number] J01.90 Based on your presentati on and exam, you are being diagnosed with Sinusitis. Rhinosinus itis is most often viral and will resolve on its own in 7-10 days. Symptoms that last longer than 2 weeks an antibiotic could be considered . Based on your presentati on, and antibiotic was written. The following are my recommenda tions to help your symptoms and to allow your condition to improve:1. Drink plenty of fluids while you are ill- stay hydrated2. Rest - don't overexert yourself - this includes sports and any gym routines.3 . I suggest taking an antihistam ine - like Claritin, Zyrtec, or Benedryl4. If you take OTC cold medication I would recommend Adrianne-Selze r Cold/Cough .5. Mucinex with a lot of water is ok - if you are having trouble clearing your nasal passages of mucous. However, if you start to cough then discontinu e - this can increase coughing due to a watery post nasal drip.6. Saline Nasal Locust is recommende d. Since an antibiotic was prescribed you need to complete the full course - this is important so you don't develop any antibiotic resistance to future infections . I advise taking a Probiotic like Florastor since you are on an antibiotic - this will help you re-coloniz e your body with the good bacteria. Typically, it will take 6 months for you to restore your normal body dakota after an antibiotic . Don't hesitate to be seen again if you develop:1. Fever > 100.52. Worsening Headache3. Stiff Neck4. Worsening Cough or Shortness of breath5. Visual Changes. The antibiotic should start to work in 4-5 days. You may not notice immediate response. Thank you for using [facility] today, please feel free to contact our office if you have any questions or concerns. Health Concerns Section Related Observation LastModified by Organization Detai ls LastModified Time None Recorded Concern Status LastModified by Organization Details LastModified Time None Recorded Advance Directives Directive None Recorded Payers Insurance Date Sequence Insurance Name Policy Number Policy Deluna Covered Member ID Deluna Member ID Guarantor Name 10/23/2022 1 [facility] [id number] Amy Faustin [id number] Amy Faustin Notes Date Note Type Note Provider Name and Address Organization Details Recorded Time 10/23/2022 text/html Sinus Complaints UCReported bypatient.Location: facial pain;sinus pressure Associated Symptoms:no fever; no difficulty breathing; no nausea or vomiting;nasal discharge from both nostrils;sore throat;Post nasal drip;nasal passage blockage bilaterally;ear fullness;cough Onset/Timing:initia lly started 2weeks ago Quality:worsening Severity:mild Context:no recent sick contacts;recent upper respiratory infection;worse with seasonal allergen exposure Risk Factors:current smoking or tobacco use(+ COPD History currently as well.) Alleviating factors:nasal steroid Flonase; antihistamine loratadineNotes:The patient has as strong history of sinusitis secondary to the allergic rhinitis. DIet controlled diabetes. Did not tolerate Metformin. MALISSA BRAND [facility] [place], [address], [place] - [facility] 10/23/2022 22:24:45 OBGyn Episode No OBEpisode recorded.
== END 2024-10-18 13:01 | disposition home or self-care (01) ==
LOC: HO.CT 13:00
PROVIDERS: PCP Internal Medicine; Visit Provider Internal Medicine Pulmonary Disease
DX: Z12.2 Encounter for screening for malignant neoplasm of respiratory organs (principal); Z87.891 Personal history of nicotine dependence
CPT/HCPCS: 71271

== ENCOUNTER → 2024-10-18 13:01 | Outpatient (BNV) | payer OTHER, SELFPAY | PROVIDERS: PCP Internal Medicine; Visit Provider Radiology Diagnostic Radiology | DX: Z12.2 Encounter for screening for malignant neoplasm of respiratory organs (principal); Z87.891 Personal history of nicotine dependence | CPT/HCPCS: 71271 ==

== ENCOUNTER 2024-11-26 13:08 | Outpatient (REF) | payer OTHER, SELFPAY ==
--- OUTSIDE RECORDS SUMMARY | 2024-11-26 13:09 | XMS_ITS | Clinical Summary ---
Author Organization [facility] Address [address] [place] [address] Phone Care Team Providers Care Meat Hanger Name Role Phone Unavailable Primary Care Provider Unavailabl e Encounters Date Type Department Care Team Description 10/27/2024 11:40 AM EDT - 10/27/2024 11:59 PM EDT Hospital Encounter [facility] PET Scan [address] [place] [address] Other nonspecific abnormal finding of lung field Discharge Disposition: Home or Self Care from Last 3 Months Social History Tobacco Use Types Packs/Day Years Used Date Smoking Tobacco: Never Assessed Comments Unknown Sex and Gender Information Value Date Recorded Sex Assigned at Not on file Legal Sex Female 10:58 PM EST Gender Identity Not on file Sexual Orientation Not on file Plan of Treatment Health Maintenance Due Date Last Done Comments Breast Cancer Screening 1969 Diabetes: Annual GFR (Glomerular Filtration Rate) 1969 Diabetes: Annual Foot Exam 09/28/1979 Diabetes: Annual Retina Eye Exam 09/28/1979 Cervical Cancer Screening: Pap Smear 1990 Zoster Vaccines (1 of 2) 09/28/2019 COVID-19 Vaccine ( season) 2023 05/03/2021, 08/07/2020, 07/10/2020 Depression Screening 04/28/2024 Hepatitis B Vaccines (2 of 3 - 19+ 3-dose series) 09/21/2024 08/24/2024 Diabetes: Annual Urine Albumin-Creatinine Ratio (uACR) 10/27/2024 HIV Screening 10/27/2024 Hepatitis C Screening 10/27/2024 Hypertension/CHF/CAD Annual BMP Blood Test 10/27/2024 Social Influencers of Health Screening 10/27/2024 Diabetes: Blood Sugar Control Test (HGBA1C) 11/03/2024 05/06/2024 Influenza Vaccine (#1) 2024 , 02/19/2021, 05/23/2020, Additional history exists Lung Cancer Screening (Low Dose CT) 10/18/2025 10/18/2024 Colorectal Cancer Screening: FIT-DNA (Cologuard) 01/30/2027 01/31/2024 Cholesterol Screening (Lipid Panel) 01/21/2029 01/22/2024 DTaP,Tdap,and Td Vaccines (4 - Td or Tdap) 01/21/2034 01/22/2024, 11/25/2011, 06/04/2007 Pneumococcal Vaccine: 50+ Years Completed 01/22/2024 HIB Vaccines Aged Out No longer eligi ble based on patient's age to complete this topic HPV Vaccines Aged Out No longer eligi ble based on patient's age to complete this topic Hepatitis A Vaccines Aged Out No long er eligible based on patient's age to complete this topic IPV Vaccines Aged Out No longer eligi ble based on patient's age to complete this topic MMR Vaccines Aged Out No longer eligi ble based on patient's age to complete this topic Meningococcal ACWY Vaccine Aged Out N o longer eligible based on patient's age to complete this topic Meningococcal B Vaccine Aged Out No l onger eligible based on patient's age to complete this topic RSV Immunization Patients Under 20 months Aged Out No longer eligible based on patient's age to complete this topic Varicella Vaccines Aged Out No longer eligible based on patient's age to complete this topic Procedures Procedure Name Priority Date/Time Associated Diagnosis Comments PET CT SKULL TO MID THIGH INITIAL Routine 10/27/2024 2:00 PM EDT Other nonspecific abnormal finding of lung field from Last 3 Months Results * PET CT Skull to Mid Thigh Initial (10/27/2024 2:00 PM EDT) Anatomical Region Laterality Modality Body Radiographic Latonia ging 11/04/2024 5:29 AM EDT Impressions 11/04/2024 5:52 AM EDT 1. Interval decrease in left perihilar mass and postobstructive left upper lobe atelectasis with mild residual FDG activity favored to represent postinfectious/postinflammatory process. Short-term follow-up with chest CT can be obtained to ensure clearing 2. New mildly FDG avid right middle lobe, lingular and right lower lobe opacities/atelectasis likely representing postinfectious/postinflammatory process. These can be followed with repeat chest CT to ensure clearing. Please note: The CT was acquired at a low radiation dose settings. The images are of nondiagnostic quality and used solely for purposes of attenuation correction and slice localization for the PET scan. If a diagnostic CT study is desired it must be ordered separately. -------- FINAL REPORT -------- Dictated By: Laurel Lazar Dictated Date: 11/04/2024 05:29 ET Assigned Physician: Laurel Lazar Reviewed and Electronically Signed By: Laurel Lazar Signed Date: 11/04/2024 05:52 ET Workstation ID: [id number] Transcribed By: Self Edit Transcribed Date: 11/04/2024 05:29 ET Narrative 11/04/2024 5:52 AM EDT INDICATION: Further evaluation of left perihilar mass seen on prior chest CT from September 2024 with obstruction of the left upper lobe bronchus and postobstructive atelectasis. TECHNIQUE: FDG PET-CT imaging was performed from the skull bases through the thighs in a single acquisition with data set reconstructed in axial, coronal, and sagittal planes at the computer workstation with fused data from both the PET imaging study and attenuation correction CT. The CT portion of the examination was done strictly for attenuation correction and is not a true diagnostic CT examination. DLP: 1349 mGy-cm Radiopharmaceutical: 12.4 mCi of F-18 FDG IV. Blood glucose: 159 mg/dl. COMPARISON: Correlation is made with outside chest CT September 2024. FINDINGS: HEAD AND NECK: Nonspecific prominence of the adenoids SUV max 3.5 which may be reactive or physiologic. Bilateral tonsillar activity SUV max 5.1 likely physiologic. No FDG avid cervical or supraclavicular lymphadenopathy. THORAX: Interval decrease in left perihilar mass with postobstructive left upper lobe atelectasis with few residual opacities measuring up to SUV Max 1.9. Lingular SUV max 2.1 and right middle lobe opacities/atelectasis SUV max 2.4; new from September 2024. New right lower lobe opacities measuring up to SUV Max 2.8. Few small sub-5 mm pulmonary nodules without significant FDG activity due to small size. No FDG avid thoracic lymphadenopathy. Mild nonspecific right hilar activity SUV max 3.3 and SUV Max 3 on the left (mediastinal blood pool SUV Max 3.0). ABDOMEN/PELVIS: No abnormal FDG activity. Hepatomegaly. Cholecystectomy. Nonspecific bowel activity. Diverticulosis. Nonobstructing calculus in the right kidney. MUSCULOSKELETAL: No abnormal FDG activity. Procedure Note Laurel Lazar MD - 11/04/2024 INDICATION: Further evaluation of left perihilar mass seen on prior chestCT from September 2024 with obstruction of the left upper lobe bronchus andpostobstructive atelectasis. TECHNIQUE: FDG PET-CT imaging was performed from the skull bases throughthe thighs in a single acquisition with data set reconstructed in axial,coronal, and sagittal planes at the computer workstation with fused datafrom both the PET imaging study and attenuation correction CT. The CTportion of the examination was done strictly for attenuation correctionand is not a true diagnostic CT examination. DLP: 1349 mGy-cm Radiopharmaceutical: 12.4 mCi of F-18 FDG IV. Blood glucose: 159 mg/dl. COMPARISON: Correlation is made with outside chest CT September 2024. FINDINGS: HEAD AND NECK: Nonspecific prominence of the adenoids SUV max 3.5 whichmay be reactive or physiologic. Bilateral tonsillar activity SUV max 5.1likely physiologic. No FDG avid cervical or supraclavicularlymphadenopathy. THORAX: Interval decrease in left perihilar mass with postobstructive leftupper lobe atelectasis with few residual opacities measuring up to SUV Max1.9. Lingular SUV max 2.1 and right middle lobe opacities/atelectasis SUVmax 2.4; new from September 2024. New right lower lobe opacities measuring upto SUV Max 2.8. Few small sub-5 mm pulmonary nodules without significantFDG activity due to small size. No FDG avid thoracic lymphadenopathy. Mild nonspecific right hilaractivity SUV max 3.3 and SUV Max 3 on the left (mediastinal blood pool SUVMax 3.0). ABDOMEN/PELVIS: No abnormal FDG activity. Hepatomegaly. Cholecystectomy.Nonspecific bowel activity. Diverticulosis. Nonobstructing calculus inthe right kidney. MUSCULOSKELETAL: No abnormal FDG activity. IMPRESSION: 1. Interval decrease in left perihilar mass and postobstructive leftupper lobe atelectasis with mild residual FDG activity favored torepresent postinfectious/postinflammatory process. Short-term follow-upwith chest CT can be obtained to ensure clearing 2. New mildly FDG avid right middle lobe, lingular and right lower lobeopacities/atelectasis likely representing postinfectious/postinflammatoryprocess. These can be followed with repeat chest CT to ensure clearing. Please note: The CT was acquired at a low radiation dose settings. The images are ofnondiagnostic quality and used solely for purposes of attenuationcorrection and slice localization for the PET scan. If a diagnostic CTstudy is desired it must be ordered separately. -------- FINAL REPORT -------- Dictated By: Laurel Lazar Dictated Date: 11/04/2024 05:29 ET Assigned Physician: Laurel Lazar Reviewed and Electronically Signed By: Laurel Lazar Signed Date: 11/04/2024 05:52 ET Workstation ID: [id number] Transcribed By: Self Edit Transcribed Date: 11/04/2024 05:29 ET Jakub Varela MD IM NM PROCEDURES Final Result from Last 3 Months Insurance [facility] on file
--- OUTSIDE RECORDS SUMMARY | 2024-11-26 13:09 | XMS_ITS | Encounter Summary ---
Author Organization [employer] Address [address] [place] [address] [place] [address] Care Team Providers Care Entry Level Business Analyst Name Role Phone Gibson Evans MD Primary Care Provider [phone] Encounter Details Date Type Department Care Team ([facility] st Contact Info) Description 12/31/2022 Orders Only [facility] PEDS [address] [place], [place] [id number] Fidelina Garner LPN Social History Tobacco Use Types Packs/Day Years Used Date Smoking Tobacco: Every Day Cigarettes 1 36 Smokeless Tobacco: Never Depression Answer Date Recorded Patient Health Questionnaire-9 Score 0 08/30/2022 Depression Answer Date Recorded Patient Health Questionnaire-2 Score 0 08/30/2022 Comments Unknown Sex and Gender Information Value Date Recorded Sex Assigned at Female 02/25/2022 10:22 AM EDT Legal Sex Female 10:22 AM EDT Gender Identity Female 02/25/2022 10:22 AM EDT Sexual Orientation Straight 02/25/2022 10 :22 AM EDT documented as of this encounter Plan of Treatment Not on file documented as of this encounter Visit Diagnoses Not on filedocumented in this encounter Additional Health Concerns Assessment Noted Time PHQ-9 Depression Total Score: 0 08/31/19 23 2:36 PM EDT documented as of this encounter Care Teams Entry Level Business Analyst Relationship Specialty Start Date End Date Gibson Evans MD [address] [place] [address] PCP - General Internal Medicine 04/28/18 documented as of this encounter
== END 2024-11-26 13:09 | disposition home or self-care (01) ==
LOC: HO.MAMMO 13:08
PROVIDERS: PCP Internal Medicine; Visit Provider Internal Medicine
DX: Z12.31 Encounter for screening mammogram for malignant neoplasm of breast (principal)
CPT/HCPCS: 77063; 77067

== ENCOUNTER → 2024-11-26 13:15 | Outpatient (BNV) | payer OTHER, SELFPAY | PROVIDERS: PCP Internal Medicine; Visit Provider Internal Medicine | DX: Z12.31 Encounter for screening mammogram for malignant neoplasm of breast (principal) | CPT/HCPCS: 77063; 77067 ==

== ENCOUNTER 2024-12-10 12:54 | Outpatient (AMB) | payer OTHER, SELFPAY ==
[2024-12-10 12:56] VITALS: BP 100/62; PULSE 109; O2SAT 90; BMI 36.7
--- NOTE | 2024-12-10 12:56 | MHC.OFFVIS ---
Vital Signs 12/10/24 12:56 Height 5 ft 1 in Weight 194 lb BMI 36.7 BP 100/62 Blood Pressure Location Rt brachial Position Sitting Pulse 109 H Pulse Source Pulse Oximeter Pulse Oximetry (%) 90 L Oxygen Delivery Method Room Air Intake Visit Reasons: Petscan results Allergies codeine Allergy (Unknown, Verified 12/10/24 13:02) Unknown fluticasone (Advair Diskus) Allergy (Unknown, Verified 12/10/24 13:02) Unknown penicillin V Allergy (Unknown, Verified 12/10/24 13:02) Unknown salmeterol (Advair Diskus) Allergy (Unknown, Verified 12/10/24 13:02) Unknown varenicline Allergy (Unknown, Verified 12/10/24 13:02) Unknown strawberry Allergy (Mild, Uncoded 09/24/22 10:32) Hives lobster Allergy (Uncoded 09/29/20 13:08) Unknown HPI HPI Petscan results: Details: 53-year-old lady active 30 pack-year smoker followed for underlying moderate asthma/COPD overlap syndrome.? She has been using Spiriva, duo nebs, albuterol MDI, and Symbicort 160 with good control of her symptoms. She does complain of ongoing bronchitic exacerbation. She had her PET-CT that demonstrated decreasing bilateral opacities without significant FDG uptake. [facility] Medical History (Updated 01/10/23 @ 13:25 by Jakub Varela MD) Cholesteatoma Hyperlipidemia Diabetes mellitus type 2, diet-controlled Chronic obstructive pulmonary disease, unspecified Personal history of nicotine dependence Environmental allergies Asthma-COPD overlap syndrome Surgical History (Updated 09/24/22 @ 10:48 by Betito Brown MD) Tubal ligation status Hx of section History of colposcopy with cervical biopsy (~2015) History of cholecystectomy (~1993) Family History Mother Uterine cancer Bone cancer Sister Uterine cancer Social History Alcohol intake: current Alcohol intake frequency: does not drink Patient Tobacco Use Status: Current everyday Tobacco user Tobacco use type: Cigarette Cigarette Packs Per Day: 1 Years Smoked: 34 yrs Female Reproductive History Menstrual Age of Menarche: 10 Review of Systems Const Denies daytime sleepiness, Denies excessive sweating, Denies fatigue, Denies fever(s), Denies lethargy, Denies malaise, Denies night sweats, Denies snoring and Denies weight loss Eyes Denies blurry vision and Denies itchy eyes ENT Denies nasal congestion, Denies post nasal drip, Denies sinus pain, Denies sinus pressure and Denies other ( Thrush) Card Denies chest pain, Denies pedal edema, Denies dyspnea, Denies orthopnea and Denies paroxysmal nocturnal dyspnea Resp Denies cough, Denies hemoptysis, Denies excessive phlegm production, Denies dyspnea, Denies snoring and Denies wheezing GI Denies abdominal pain and Denies heartburn Musc Denies myalgias, Denies arthralgias and Denies joint swelling Skin/Breast Denies rash Neuro Denies memory loss and Denies seizure-like activity Psych Denies abnormal sleep pattern, Denies anxiety and Denies memory loss Endo Denies excessive sweating, Denies fatigue and Denies heat intolerance Pepe/Lymph Denies easy bruising Aller/Immun Denies itchy eyes, Denies seasonal rhinorrhea and Denies wheezing Physical Exam Vital Signs: Last Vital Signs Pulse 109 H 12/10/24 12:56 BP 100/62 12/10/24 12:56 Pulse Ox 90 L 12/10/24 12:56 Oxygen Delivery Method Room Air 12/10/24 12:56 BMI result Body Mass Index 36.7 Const General: no acute distress and alert Nutritional Appearance: obese Orientation/consciousness: Other orientation findings ( oriented) HEENT Head: Yes atraumatic Eyes General: appearance normal, both eyes and all related structures Sclerae: sclerae normal EOM: EOMs intact bilaterally Neck Neck: Yes supple Lymphatic: no lymphadenopathy noted Resp Effort & Inspection: normal respiratory effort and no use of accessory muscles Auscultation: clear to auscultation bilaterally Cardio Rate: regular rate Rhythm: regular rhythm Heart sounds: no gallops, no murmurs and no rubs Skin General skin exam: other ( warm) Extrem General: No clubbing, No cyanosis and No edema Assessment & Plan Assessment & Plan (1) Asthma-COPD overlap syndrome: Code(s): J44.9 - Chronic obstructive pulmonary disease, unspecified Category: Medical Plan: Reasonable control on current regimen of Spiriva, duo nebs, Symbicort, and albuterol MDI. Continue current regimen. (2) Pulmonary nodules: Code(s): R91.8 - Other nonspecific abnormal finding of lung field Category: Medical Plan: Results of PET-CT reviewed, decreasing pulmonary opacities with no significant FDG uptake. Continue to monitor with imaging. (3) Personal history of nicotine dependence: Comment: (Current smoker, onset 15, 1ppd x 35yrs, now 5-10cig/day, 35PYH) Code(s): Z87.891 - Personal history of nicotine dependence Category: Medical Plan: Continue lung cancer screening. Medications: New levofloxacin 750 mg PO DAILY 10 tabs 0RF prednisone 40 mg (2 x 20 mg) PO DAILY 14 tabs 0RF Coding Level of Care Code Est Pt Level 4 (27505) Complex EM visit Add On G2211 Diagnoses Asthma-COPD overlap syndrome J44.9 Pulmonary nodules R91.8 Personal history of nicotine dependence Z87.891
--- OUTSIDE RECORDS SUMMARY | 2024-12-10 12:56 | XMS_ITS | Clinical Summary ---
Author Organization [facility] Address [address] [place] [address] Phone Care Team Providers Care Generator Repairer Name Role Phone Unavailable Primary Care Provider Unavailabl e Encounters Date Type Department Care Team Description 10/27/2024 11:40 AM EDT - 10/27/2024 11:59 PM EDT Hospital Encounter [facility] PET Scan [address] [place] [address] Other nonspecific abnormal finding of [...] Signed Date: 11/04/2024 05:52 ET Workstation ID: [id number] Transcribed By: Self Edit Transcribed Date: 11/04/2024 [...] Signed Date: 11/04/2024 05:52 ET Workstation ID: [id number] Transcribed By: Self Edit Transcribed Date: 11/04/2024 05:29 ET Jakub Varela MD IM NM PROCEDURES Final Result from Last 3 Months Insurance [facility] on file
--- OUTSIDE RECORDS SUMMARY | 2024-12-10 12:56 | XMS_ITS | Encounter Summary ---
Author Organization [email or web address] Address [address] [place] [address] [place] [address] Care Team Providers Care Percussion Instructor Name Role Phone Gibson Evans MD Primary Care Provider [phone] Encounter Details Date Type Department Care Team ([facility] st Contact Info) Description 12/31/2022 Orders Only [facility] PEDS [address] [place], [place] [phone] Fidelina Garner LPN Social History Tobacco Use [...] documented as of this encounter Care Teams Percussion Instructor Relationship Specialty Start Date End Date Gibson Evans MD [address] [place] [address] PCP - General Internal Medicine 04/28/18 documented as of this encounter
== END 2024-12-10 13:34 | disposition home or self-care (01) ==
LOC: HO.HPS 12:54
PROVIDERS: PCP Internal Medicine; Visit Provider Internal Medicine Pulmonary Disease
DX: J44.9 Chronic obstructive pulmonary disease, unspecified (principal); R91.8 Other nonspecific abnormal finding of lung field; Z87.891 Personal history of nicotine dependence
CPT/HCPCS: 99214; G2211

== ENCOUNTER → 2024-12-10 12:54 | Outpatient (BNVA) | payer OTHER, SELFPAY | PROVIDERS: PCP Internal Medicine; Visit Provider Internal Medicine Pulmonary Disease | DX: J44.89 Other specified chronic obstructive pulmonary disease (principal); R91.8 Other nonspecific abnormal finding of lung field; Z87.891 Personal history of nicotine dependence | CPT/HCPCS: 99212 ==

== ENCOUNTER 2025-04-26 13:06 | Outpatient (AMB) | payer OTHER, SELFPAY ==
[2025-04-26 13:10] VITALS: BP 114/60; PULSE 113; O2SAT 92; BMI 37.0
--- NOTE | 2025-04-26 13:10 | MHC.OFFVIS ---
Vital Signs 04/26/25 13:10 Height 5 ft 1 in Weight 196 lb BMI 37.0 BP 114/60 Blood Pressure Location Lt brachial Position Sitting Pulse 113 H Pulse Source Pulse Oximeter Pulse Oximetry (%) 92 Oxygen Delivery Method Room Air Intake Visit Reasons: Asthma/COPD Allergies codeine Allergy (Unknown, Verified 12/10/24 13:02) Unknown fluticasone (Advair Diskus) Allergy (Unknown, Verified 12/10/24 13:02) Unknown penicillin V Allergy (Unknown, Verified 12/10/24 13:02) Unknown salmeterol (Advair Diskus) Allergy (Unknown, Verified 12/10/24 13:02) Unknown varenicline Allergy (Unknown, Verified 12/10/24 13:02) Unknown levofloxacin Adverse Reaction (Intermediate, Verified 04/26/25 13:40) Unknown strawberry Allergy (Mild, Uncoded 09/24/22 10:32) Hives lobster Allergy (Uncoded 09/29/20 13:08) Unknown HPI HPI Asthma/COPD: Details: 54-year-old lady active 30 pack-year smoker followed for underlying moderate asthma/COPD overlap syndrome.? She has been using Spiriva, duo nebs, albuterol MDI, and Symbicort 160 with good control of her symptoms. She denies recent exacerbations. She had her PET-CT that demonstrated decreasing bilateral opacities without significant FDG uptake. [facility] Medical History (Updated 01/10/23 @ 13:25 by Jakub Varela MD) Cholesteatoma Hyperlipidemia Diabetes mellitus type 2, diet-controlled Chronic obstructive pulmonary disease, unspecified Personal history of nicotine dependence Environmental allergies Asthma-COPD overlap syndrome Surgical History (Updated 09/24/22 @ 10:48 by Betito Brown MD) Tubal ligation status Hx of section History of colposcopy with cervical biopsy (~2015) History of cholecystectomy (~1993) Family History Mother Uterine cancer Bone cancer Sister Uterine cancer Social History Alcohol intake: current Alcohol intake frequency: does not drink Patient Tobacco Use Status: Current everyday Tobacco user Tobacco use type: Cigarette Cigarette Packs Per Day: 1 Years Smoked: 34 yrs Female Reproductive History Menstrual Age of Menarche: 10 Review of Systems Const Denies daytime sleepiness, Denies excessive sweating, Denies fatigue, Denies fever(s), Denies lethargy, Denies malaise, Denies night sweats, Denies snoring and Denies weight loss Eyes Denies blurry vision and Denies itchy eyes ENT Denies nasal congestion, Denies post nasal drip, Denies sinus pain, Denies sinus pressure and Denies other ( Thrush) Card Denies chest pain, Denies pedal edema, Denies dyspnea, Denies orthopnea and Denies paroxysmal nocturnal dyspnea Resp Denies cough, Denies hemoptysis, Denies excessive phlegm production, Denies dyspnea, Denies snoring and Denies wheezing GI Denies abdominal pain and Denies heartburn Musc Denies myalgias, Denies arthralgias and Denies joint swelling Skin/Breast Denies rash Neuro Denies memory loss and Denies seizure-like activity Psych Denies abnormal sleep pattern, Denies anxiety and Denies memory loss Endo Denies excessive sweating, Denies fatigue and Denies heat intolerance Pepe/Lymph Denies easy bruising Aller/Immun Denies itchy eyes, Denies seasonal rhinorrhea and Denies wheezing Physical Exam Vital Signs: Last Vital Signs Pulse 113 H 04/26/25 13:10 BP 114/60 04/26/25 13:10 Pulse Ox 92 04/26/25 13:10 Oxygen Delivery Method Room Air 04/26/25 13:10 BMI result Body Mass Index 37.0 Const General: no acute distress and alert Nutritional Appearance: obese Orientation/consciousness: Other orientation findings ( oriented) HEENT Head: Yes atraumatic Eyes General: appearance normal, both eyes and all related structures Sclerae: sclerae normal EOM: EOMs intact bilaterally Neck Neck: Yes supple Lymphatic: no lymphadenopathy noted Resp Effort & Inspection: normal respiratory effort and no use of accessory muscles Auscultation: clear to auscultation bilaterally Cardio Rate: regular rate Rhythm: regular rhythm Heart sounds: no gallops, no murmurs and no rubs Skin General skin exam: other ( warm) Extrem General: No clubbing, No cyanosis and No edema Assessment & Plan Assessment & Plan (1) Asthma-COPD overlap syndrome: Code(s): J44.9 - Chronic obstructive pulmonary disease, unspecified Category: Medical Plan: Controlled on current regimen of Symbicort, Spiriva, duo nebs, and albuterol MDI. Continue current regimen. (2) Personal history of nicotine dependence: Comment: (Current smoker, onset 15, 1ppd x 35yrs, now 5-10cig/day, 35PYH) Code(s): Z87.891 - Personal history of nicotine dependence Category: Medical Plan: Continue lung cancer screening. (3) Pulmonary nodules: Code(s): R91.8 - Other nonspecific abnormal finding of lung field Category: Medical Plan: Prior PET with no FDG uptake. Follow-up CT scan is pending. Medications: New nitroglycerin 0.4%(w/w) 0.5 inches SD Q12H 1 week 30 grams 0RF nitroglycerin 0.4%(w/w) 0.5 inches SD Q12H 30 grams 0RF 1 week Coding Level of Care Code Est Pt Level 4 (19231) Add On Problem Visit Only Diagnoses Asthma-COPD overlap syndrome J44.9 Personal history of nicotine dependence Z87.891 Pulmonary nodules R91.8
--- OUTSIDE RECORDS SUMMARY | 2025-04-26 16:59 | XMS_ITS | Clinical Summary ---
Author Organization [facility] Address [address] [place] [address] Phone Care Team Providers Care Physical Education Department Chair Name Role Phone Unavailable Primary Care Provider Unavailabl e Social History Tobacco Use Types Packs/Day Years [...] 09/28/1979 Cervical Cancer Screening: Pap Smear 1990 RSV Immunization Adult Patients (1 - Risk 50-74 years 1-dose series) 09/28/2019 Zoster Vaccines (1 of 2) 09/28/2019 Depression Screening 04/28/2024 Hepatitis B Vaccines (2 of 3 - 19+ 3-dose series) 09/21/2024 08/24/2024 Diabetes: Annual Urine Albumin-Creatinine Ratio (uACR) 10/27/2024 HIV Screening 10/27/2024 Hepatitis C Screening 10/27/2024 Hypertension/CHF/CAD Annual BMP Blood Test 10/27/2024 Social Influencers of Health Screening 10/27/2024 Diabetes: Blood Sugar Control Test (HGBA1C) 11/03/2024 05/06/2024 COVID-19 Vaccine ( season) 2024 05/03/2021, 08/07/2020, 07/10/2020 Influenza Vaccine (#1) 2024 , 02/19/2021, 05/23/2020, [...] on patient's age to complete this topic Insurance [facility] on file
--- OUTSIDE RECORDS SUMMARY | 2025-04-26 17:00 | XMS_ITS | Data Portability ---
Author Organization MALISSA Patterson [employer], [address] Address [address] [place] [address] Assessment No assessment recorded. Plan of Treatment Reminders Order Date Submit Date Provider Last Modified By Organization Details Last Modified Time Details Appointments None recorded. Lab None recorded. Referral None recorded. Procedures None recorded. Surgeries None recorded. Imaging None recorded. Medication Orders doxycycline hyclate 100 mg tablet 2022 023 [facility]/Pharmacy #[id number], [address] [facility], [place], [address], 14:08:16 Patient TargetsNo targets recorded. Patient Instructions Encounter Date Encounter Id Patient Instructions Last Modified By Organization Details Last Modified Time 10/23/2022 [id number] Acute Sinusitis: Care Instructions [email or web address] Not available 10/23/2022 14:08:14 Acute bronchitis is [...] Pain 3. Wheezing 4. Coughing up Blood Not available 10/23/2022 14:07:50 Reason for Referral None Reported. Problems Name Problem SNOMED Code Status Onset Date Resolution Date Notes Provider Name and Address Organization Details Recorded Time Hypertensive disorder 49837853 Active 2022 GERA robles, [place] - [facility] 3 13:26:41 Hyperlipidemia 65980759 Active 2022 GERA GUZMÁN null, [place] - [facility] 3 13:26:46 Asthma 618115182 Active 2022 GERA GUZMÁN null, [place] - [facility] 3 13:26:52 Chronic obstructive pulmonary disease 00002640 Active 2022 GERA GUZMÁN null, [place] - [facility] 3 13:26:57 Diabetes mellitus 53781486 Active 2022 GERA robles, [place] - [facility] 3 13:27:02 Problem Notes None recorded. Procedures Surgical History Date Name Laterality Status Provider Name and Address Organization Details Recorded Time cholecystectomy completed GERA GUZMÁN [place] - [facility] 10/23/2022 13:27:20 [...] Name and Address Organization Details Recorded Time 002759 Product containin g penicilli n (product) medicatio n Not available Not available Not available 10/23/2022 65965 8001 SNOMED GERA GUZMÁN null, [place] - [facility] 3 13:23:59 527357 codeine medicatio n Not available Not available Not available 10/23/2022 2670 RxNorm GERA GUZMÁN null, [place] - [facility] 3 13:24:03 833286 shellfish derived food,medi cation Not available Not available Not available 10/23/2022 GERA robles, [place] - [facility] 3 13:24:09 786732 strawberr y allergeni c extract food Not available Not available Not available 10/23/2022 69549 4 RxNorm GERA GUZMÁN null, PA - [facility] 3 13:24:34 503527 tree nut food Not available Not available Not available 10/23/2022 GERA GUZMNÁ null, PA - [facility] 3 13:24:39 [...] mass index (BMI) Body weight Oxygen saturation Heart rate Respiratory rate Body temperature Systolic And Diastolic Provider Name and Address Organization Details Last Updated DateTime 3 152.4 cm 40.2 kg/m2 34990.0 3 g 95 % 91 /min 18 /min 98.1 [degF] 117/81 mm[Hg] GERA Flores [facility] 13:29:53 Social History Question Answer Notes LastModified by [employer] Details LastModified Time Tobacco Smoking Status Current Every Day Smoker MALISSA Molina [facility] 10/23/2022 13:27:50 Have You Had Direct Contact, Or Contact During Intimacy, With Monkeypox Rash, Scabs, Or Body Fluids From A Person With Monkeypox? No Information not available 10/23/2022 How Much Tobacco Do You Smoke? 1 PPD Information not available 10/23/2022 Have You Recently Traveled Abroad? No Information not available 10/23/2022 Sex: Unknown Functional Status Question Answer Note LastModified by [employer] Details LastModified Time Do you use any [...] virus, quadrivalent, preservative 8 completed MALISSA Molina [facility] 10/23/2022 13:24:56 COVID-19, mRNA, LNP-S, [...] Diagnosis SNOMED-CT Code Diagnosis ICD10 Code Diagnosis IMO Codes Diagnosis Note [id number] [facility] [address] [address] 07/15/2021 08:37:00 07/15/2021 09:40:01 [id number] [address] [address] [place] [address] 11/07/2020 12:02:45 11/07/2020 13:16:13 [id number] [address] [address] [address] [place] [address] 06/03/2015 09:53:06 06/03/2015 10:48:33 [id number] [address] [address] [facility] [address] [place] [address] 11/28/2021 17:43:38 11/28/2021 19:38:38 [id number] [address] [address] [facility] [place] [address] 05/01/2018 14:24:11 05/01/2018 15:18:15 [id number] [address] [address] [place] [address] 02/15/2021 13:32:04 02/15/2021 15:44:30 [id number] MALISSA BRAND [address] [place] [address] 10/23/2022 12:05:57 10/23/2022 14:08:37 Acute sinusitis 59494793 J01.90 Based on your presentati on and [...] a watery post nasal drip.6. Saline Nasal [place] is recommende d. Since an antibiotic was [...] notice immediate response. Thank you for using [facility] today, please feel free to contact our [...] Deluna Member ID Guarantor Name 10/23/2022 1 [facility] [id number] Amy Faustin [id number] Amy Faustin Notes Date Note Type Note Provider Name and Address Organization Details Recorded Time 3 text/html Sinus Complaints UCReported by PatientHPIFor location, patient reportsfacial painandsinus pressure. For associated symptoms, patient reportsnasal discharge from both nostrils,sore throat,post nasal drip,nasal passage blockage bilaterally,ear fullness, andcoughbut reportsno fever,no difficulty breathing, andno nausea or vomiting. For quality, patient reportsworsening. For context, patient reportsrecent upper respiratory infectionandworse with seasonal allergen exposurebut reportsno recent sick contacts. For risk factors, patient reportscurrent smoking or tobacco use (+ copd history currently as well.). For onset/timing, patient reportsinitially started 2weeks ago. For severity, patient reportsmild. For alleviating factors, patient reportsnasal steroid flonaseandantihistamine loratadine.The patient has as strong history of sinusitis secondary to the allergic rhinitis. DIet controlled diabetes. Did not tolerate Metformin. MALISSA BRAND [address] [place], [address], [place] - [facility] 10/23/2022 22:24:45 OBGyn Episode No OBEpisode recorded.
--- OUTSIDE RECORDS SUMMARY | 2025-04-26 17:00 | XMS_ITS | Encounter Summary ---
Author Organization [employer] Address [address] [place] [address] [address] [place] [address] Care Team Providers Care Hot Mill Shearer Name Role Phone Gibson Evans MD Primary Care Provider [phone] Encounter Details Date Type Department Care Team (Late st Contact Info) Description 01/23/2023 Orders Only [facility] [address] [place] [address] Provider, MD Ashanti Social History Tobacco Use Types Packs/Day Years [...] on file documented as of this encounter Procedures Procedure Name Priority Date/Time Associated Diagnosis Comments HM PAP/HPV Routine 01/17/2021 documented in this encounter Results * Hm Pap Smear (01/17/2021) Historical Provider HEALTH MAINTENANCE Final Result documented in this encounter Visit Diagnoses Not on filedocumented in this encounter Additional Health Concerns Assessment Noted Time PHQ-9 Depression Total Score: 0 08/31/19 23 2:36 PM EDT documented as of this encounter Care Teams Hot Mill Shearer Relationship Specialty Start Date End Date Gibson Evans MD [address] [place] [address] PCP - General Internal Medicine 04/28/18 documented as of this encounter
--- OUTSIDE RECORDS SUMMARY | 2025-04-26 17:00 | XMS_ITS | Data Portability ---
Author Organization [place] - [facility], Allergy Address [address] [address] Care Team Providers Care Storage Management Architect Name Role Phone JOSH LEMON Primary Care Provider Assessment Encounter Date Assessment Date Assessment LastModified by Organization Details LastModified Time 07/15/2024 07/15/2024 The right ear continues to remain beautifully healed following two-stage surgery for cholesteatoma back in 2021. Physical exam is unchanged in comparison to previous photographs. No signs of retraction or recurrent cholesteatoma, or signs of persistent eustachian tube dysfunction. At this point we discussed the pros and cons of continued surveillance versus having her simply come in if she has any problems or changes in the hearing. She would like to come back as needed. Not available 07/15/2024 09:56:08 Plan of Treatment Reminders Order Date Submit Date Provider Last Modified By Organization Details Last Modified Time Details Appointments None record ed. Lab None record ed. Referral None record ed. Procedures None record ed. Surgeries None record ed. Imaging None record ed. Medication Orders None record ed. Patient TargetsNo targets recorded. Patient InstructionsNo instructions recorded. Reason for Referral None Reported. Results Created Date Observation Date Name Description Value Unit Range Abnormal Flag Note LastModifiedBy Organization Detail LastModifiedTime 07/16/19 25 audio gram No observ ation record ed. BARCODE Not Available 2024 10:43:47 Result Notes None recorded. Problems Name Problem SNOMED Code Status Onset Date Resolution Date Notes Provider Name and Address Organization Details Recorded Time Conducti ve hearing loss 10576136 Active 2020 Conducti ve hearing loss, unilater al, right ear, with unrestri cted hearing on the contrala teral side; Note: Date Diagnose d: 02/13/20 12:42 PM (H90.11) Not Available [facility] 4 02:27:38 Disorder of right Eustachi an tube 84506490670 73557 Active 2020 Other specifie d disorder s of Eustachi an tube, right ear; Note: Date Diagnose d: 02/13/20 12:42 PM (H69.81) Not Available [facility] 4 02:28:02 Choleste atoma of right tympanic membrane 30800618670 79854 Completed 202011/28/2023 Choleste atoma of tympanum , right ear; Note: Date Diagnose d: 6:21 PM (H71.11) Not Available [facility] 4 02:28:05 Tobacco user 857951048 Active 2020 Tobacco use; Note: Date Diagnose d: 6:21 PM (Z72.0) Not Available [facility] 4 02:27:52 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 , right ear; Note: Date Diagnose d: 6:21 PM (H74.321 ) Not Available [facility] 4 02:27:57 Dysphoni a 38774859 Active 2020 Hoarsene ss; Note: Date Diagnose d: 6:21 PM (R49.0) Not Available [facility] 4 02:27:58 History of respirat ory disease 348707907 Active 2020 Personal history of other diseases of the respirat ory system; Note: Date Diagnose d: 6:21 PM (Z87.09) Not Available [facility] 4 02:27:43 Choleste atoma of right mastoid 54908002692 78915 Completed 202111/28/2023 Choleste atoma of mastoid, right ear; Note: Date Diagnose d: 2 10:21 AM (H71.21) Not Available [facility] 4 02:27:43 Follow-u p visit Active 2021 Medical surveill ance followin g complete d treatmen t; Note: Date Diagnose d: 06/29/2021 3:30 PM (Z09) Not Available [facility] 4 02:27:58 Mixed conducti ve and sensorin eural hearing loss of right ear 45254821448 105 Active 2021 Mixed conducti ve and sensorin eural hearing loss, unilater al, right ear, with unrestri cted hearing on the contrala teral side; Note: Date Diagnose d: 01/03/2022 10:55 AM (H90.71) Not Available [facility] 4 02:27:44 Marginal perforat ion of tympanic membrane 79370561 Completed 202111/28/2023 Other marginal perforat ions of tympanic membrane , right ear; Note: Date Diagnose d: 01/03/2022 11:32 AM (H72.2X1 ) Not Available [facility] 4 02:28:03 Conducti ve hearing loss, bilatera l 496941807 Active 2021 Conducti ve hearing loss, bilatera l; Note: Date Diagnose d: 03/25/20 22 12:13 PM (H90.0) Not Available [facility] 4 02:27:56 Problem Notes None recorded. Procedures Surgical History Date Name Laterality Status Provider Name and Address Organization Details Recorded Time 07/15/2024 Air & Speech Audio with Tymps - 45742, 07411 & 07317 completed JULIAN ZAMORA, [address], [address], [facility] - [facility] 07/15/2024 09:26:12 Imaging Results None recorded. Procedure Notes None recorded. Medical Equipment None Reported. Allergies Allergen ID Allergen Name Allergen Category Reaction Reaction Severity Criticality Documentation Date Start Date Code Code System Note Provider Name and Address Organization Details Recorded Time 744850 tree nut food Not available Not available Not available 07/13/2024 Nannette robles [place] - [facility] 5 10:13:35 56743 codeine medicatio n other Not available Not available 09/09/2023 2670 RxNorm React ion: other react ion, Unkno wn; Not Available [facility] 4 00:56:44 41968 Product containin g penicilli n (product) medicatio n other Not available Not available 09/09/2023 88482 8001 SNOMED React ion: other react ion, Unkno wn; Not Available [facility] 4 00:56:46 Medications Name Sig Start Date Stop Date Status Note LastModified by Organization Details LastModified Time Prescript ion - Prior Authoriza tion Request active Script Copy/Peggy or Auth^Scr ipt Copy/Peggy or Auth_ 84872 Not Available Not Available Not Available metformin 500 mg tablet 07/15 completed Medicati on ID: [id number] B rand Name: metformi n Send Method: E-Prescr ibed Sub s Allowed: subs OK Medic ationGen ericName : metformi n Not Available Not Available Not Available ipratropi um 0.5 mg-albute rol 3 mg (2.5 mg base)/3 mL nebulizat ion soln INHALE 1 VIAL VIA NEBULIZE R EVERY 4 TO 6 HOURS NEEDED FOR WHEEZING active Not Available Not Available No t Available albuterol sulfate 2.5 mg/3 mL (0.083 %) solution for nebulizat ion INHALE 1 VIAL VIA NEBULIZE R EVERY 4 HOURS NEEDED 07/15 completed Not Available Not Available Not Available azithromy lawrence 250 mg tablet TAKE 1 TABLET BY MOUTH FRIDAY, Y & FRIDAY FOR 30 DAYS 07/15 completed Not Available Not Available Not Available Ciloxan 0.3 % eye drops 07/15 completed Medicati on ID: [id number] D uration Value: 14 Prescri bed By Name: JOHNATHON Kramer nd Name: Ciloxan Send Method: E-Prescr ibed Sub s Allowed: subs OK Speci al Instruct ion: 4 drops into affected ear BID X 14 days Med icationG enericNa me: Ciloxan Not Available Not Available Not Available simvastat in 40 mg tablet TAKE 1 TABLET BY MOUTH EVERY DAY active Not Available Not Available No t Available lisinopri l 5 mg tablet TAKE 1 TABLET BY MOUTH EVERY DAY active Not Available Not Available No t Available ibuprofen 600 mg tablet TAKE 1 TABLET (600 MG) BY MOUTH EVERY 8 (EIGHT) HOURS IF NEEDED FOR MILD PAIN. active Not Available Not Available No t Available albuterol sulfate HFA 90 mcg/actua tion aerosol inhaler INHALE 2 PUFFS INTO LUNGS EVERY 4 HOURS NEEDED active Not Available Not Available No t Available fluticaso ne propionat e 50 mcg/actua tion nasal spray,doe pension PLEASE SEE ATTACHED FOR DETAILED DIRECTIO NS active Not Available Not Available No t Available oxycodone 5 mg tablet Take 1 tablet by mouth every six hours as needed for pain 07/15 completed Medicati on ID: [id number] D uration Value: 5 Brand Name: oxycodon e Send Method: E-Prescr ibed Sub s Allowed: subs OK Medic ationGen ericName : oxycodon e Not Available Not Available Not Available fenofibra te nanocryst allized 145 mg tablet TAKE 1 TABLET BY MOUTH EVERY DAY active Not Available Not Available No t Available budesonid e-formote rol HFA 160 mcg-4.5 mcg/actua tion aerosol inhaler INHALE 2 PUFFS INTO LUNGS TWICE A DAY active Not Available Not Available No t Available Jardiance 10 mg tablet TAKE 1 TABLET (10 MG) BY MOUTH ONCE PER DAY. active Not Available Not Available No t Available Spiriva Respimat 2.5 mcg/actua tion solution for inhalatio n INHALE 2 PUFFS BY MOUTH EVERY DAY active Not Available Not Available No t Available Vitals None Recorded Social History None recorded. Functional Status None recorded. Mental Status None recorded. Family History Nothing Reported. Medical History Condition Response Hypertension Y Asthma Y High Cholesterol Y Gynecological HistoryNo gynecological history recorded. Obstetrics History GPAL:G 0 P 0 0 0 0 Past Encounters Encounter ID Performer Location Encounter Start Date Encounter Closed Date Diagnosis/Indication Diagnosis SNOMED-CT Code Diagnosis ICD10 Code Diagnosis IMO Codes Diagnosis Note [id number] RACHEL ROJAS MD [facility] [address] [address] 07/15/2024 08:51:38 07/15/2024 10:42:26 Partial loss of ear ossicles 39102143 H74.321 Follow-up visit 53197344 9 Z09 Conductive hearing loss, bilateral 943250921 H90.0 Audiologic al evaluation results: Right ear:Border line normal sloping to moderately severe conductive hearing loss with excellent word recognitio n.Left ear:Normal sloping to a mild conductive hearing loss with excellent word recognitio n. Tympanomet ry:Right Ear:Type CLeft Ear:Type CVery mild hearing loss noted, not enough to have a significan t effect on daily hearing. No need for interventi on. Health Concerns Section Related Observation LastModified by Organization Detai ls LastModified Time None Recorded Concern Status LastModified by Organization Details LastModified Time None Recorded Advance Directives Directive None Recorded Payers Insurance Date Sequence Insurance Name Policy Number Policy Deluna Covered Member ID Deluna Member ID Guarantor Name 07/15/[address] [facility] Evans Faustin [id number] Amy Ramin 01/09/2024 1 JASMIN-ALEENA (PPO) [id number] Evans Faustin [id number] Amy Ramin 07/15/2024 1 [employer] () Amy Ramin [id number] Amy Penaier Notes Date Note Type Note Provider Name and Address Organization Details Recorded Time 07/15/2024 text/html Patient is status post two-stage surgery for cholesteatoma in 2021. No further surgery planned for this ear. She comes in for 1 year cholesteatoma surveillance. No episodes of pain or discharge. No changes in her hearing. Last audiogram was February 2022. She notes that her hearing has been in good shape. Overall ears have been feeling fine RACHEL ROJAS MD [address] [place] [address], [address], [facility] - [facility] 07/15/2024 09:56:49 OBGyn Episode No OBEpisode recorded.
--- OUTSIDE RECORDS SUMMARY | 2025-04-26 17:00 | XMS_ITS | Encounter Summary ---
Author Organization [employer] Address [address] [place] [address] [place] [address] Care Team Providers Care Head Teacher Name Role Phone Gibson Evans MD Primary Care Provider Encounter Details Date Type Department Care Team ([facility] st Contact Info) Description 12/31/2022 Orders Only [facility] [address] [place], [place] [phone] Fidelina Garner LPN Social History Tobacco Use [...] documented as of this encounter Care Teams Head Teacher Relationship Specialty Start Date End Date Gibson Evans MD [address] [place] [address] PCP - General Internal Medicine 04/28/18 documented as of this encounter
--- OUTSIDE RECORDS SUMMARY | 2025-04-26 17:00 | XMS_ITS | Encounter Summary ---
Author Organization [employer] Address [address] [place] [address] Care Team Providers Care Rf Technician Name Role Phone Gibson Evans MD Primary Care Provider [phone]- [phone] Reason for Referral * Imaging (Routine) - Closed Specialty Diagnoses / Procedures Referred By Contronn mcdonnell Referred To Contact Diagnoses Elevated liver function tests Procedures US Abdomen Complete Gibson Evans MD [address] [place] [address] Phone: tel: fax: [facility] fax: Referral ID Status Reason Start Date Expiration Date Visits Re quested Visits Authorized [id number] Closed 09/04/2022 03/03/2023 1 1 Encounter Details Date Type Department Care Team ([facility] st Contact Info) Description 09/04/2022 Orders Only [facility]ED[facility] [address] [place] [address] Gibson Evans MD [address] [place] [address] Elevated liver function tests (Primary Dx) Social History Tobacco Use Types Packs/Day Years [...] Orientation Straight 02/25/2022 10 :22 AM EDT COVID-19 Exposure Response Date Recorded In the last 10 days, have yo u been in contact with someone who was confirmed or suspected to have Coronavirus/COVID-19? No / Unsure 08/30/2022 2:17 PM EDT documented as of this encounter Plan of Treatment Scheduled Orders Name Type Priority Associated Diagnoses Orde r Schedule US Abdomen Complete Imaging Routine Elevated liver function tests Expected: 09/04/2022, Expires: 09/05/2023 documented as of this encounter Procedures Procedure Name Priority Date/Time Associated Diagnosis Comments HEPATITIS PANEL, GENERAL Routine 10/01/2022 10:57 AM EDT Elevated liver function tests documented in this encounter Results * Hepatitis Panel, General (10/01/2022 10:57 AM EDT) Hepatitis A Antibody Total NON-REACT JESSA NON-REACT JESSA [employer] [place] [employer] Comment: For additional information, please refer to http://[employer].Touchstorm/faq/JNJ410 (This link is being provided for informational/ educational purposes only.) Hepatitis B Surface Antibody QL NON-REACT JESSA NON-REACT JESSA [facility] Hepatitis B Surface Ag NON-REACT JESSA NON-REACT JESSA [facility] Hepatitis B Core Antibody Total NON-REACT JESSA NON-REACT JESSA [facility] Hepatitis C Antibody NON-REACT JESSA NON-REACT JESSA [facility] Index 0.04 <1.00 [facility] [place] [employer] Comment: HCV antibody was non-reactive. There is no laboratory evidence of HCV infection. In most cases, no further action is required. However, if recent HCV exposure is suspected, a test for HCV RNA (test code 99376) is suggested. For additional information please refer to http://[employer].Touchstorm/faq/HEZ98n5 (This link is being provided for informational/ educational purposes only.) 10/01/2022 10:5 7 AM EDT 10/01/2022 10:57 AM EDT Gibson Evans MD LAB BLOOD ORDERABLES Final Result [facility] [address], [place] [address] [facility] [address] [place] [address] documented in this encounter Visit Diagnoses Diagnosis Elevated liver function tests- Primary Other abnormal blood chemistry documented in this encounter Additional Health Concerns Assessment Noted Time PHQ-9 Depression Total Score: 0 08/31/19 23 2:36 PM EDT documented as of this encounter Care Teams Rf Technician Relationship Specialty Start Date End Date Gibson Evans MD [address] [place] [address] PCP - General Internal Medicine 04/28/18 documented as of this encounter
--- OUTSIDE RECORDS SUMMARY | 2025-04-26 17:00 | XMS_ITS | Clinical Summary ---
Author Organization [employer] Address [address] [place] [address] [address] [place] [address] Care Team Providers Care Broadcast Technician Name Role Phone Gibson Evans MD Primary Care Provider Allergies Active Allergy Reactions Criticality Noted Date Comments Codeine Hives 10/25/2011 Other reaction(s): hives itchy Fluticasone 05/25/2018 Fluticasone-Salmeterol 08/30/2022 Other reaction(s): Throat closes ALL DRY POWDERED INHALERS (DPI) Hydromorphone 08/30/2022 Other reaction(s): vomiting Penicillin G Hives 08/30/2022 Penicillins 10/25/2011 Other reaction(s): C/O: a swelling, hives swollen throat Salmeterol 05/25/2018 Shellfish Allergy Hives 08/30/2022 Ferguson Extract Hives 01/13/2012 Stevenson Oil 10/01/2022 Other reaction(s): hives walnuts, hazelnuts, almonds Varenicline Hives 01/13/2012 Medications albuterol (2.5 MG/3ML) 0.083% nebulizer solution inhale 3 milliliter by nebulization route every 4 hours as needed 2 Active fenofibrate (Tricor) 145 MG tablet TAKE 1 TABLET BY MOUTH EVERY DAY 2 Active fluticasone (Flonase) 50 MCG/ACT nasal spray Administer 1 spray into each nostril in the morning. Shake gently. Before first use, prime pump. After use, clean tip and replace cap. Active FreeStyle InsuLinx Test test strip USE TO TEST TWICE DAILY 3 Active FreeStyle InsuLinx Test test strip USE TO TEST TWICE DAILY 50 strip 11 4 Active fenofibrate (Tricor) 145 MG tablet TAKE 1 TABLET BY MOUTH EVERY DAY 90 tablet 3 5 Active fluticasone (Flonase) 50 MCG/ACT nasal sprayIndications :Moderate persistent asthma without complication ADMINISTER 1-2 SPRAYS INTO EACH NOSTRIL IN THE MORNING. SHAKE GENTLY. BEFORE FIRST USE, PRIME PUMP. AFTER USE, CLEAN TIP AND REPLACE CAP. 48 mL 3 5 026 Active empagliflozin (Jardiance) 10 MGIndications:Di abetes mellitus type 2, noninsulin dependent (HCC) Take 1 tablet (10 mg) by mouth Once per day. 30 tablet 11 5 026 Active albuterol (2.5 MG/3ML) 0.083% nebulizer solutionIndicati ons:Moderate persistent asthma without complication INHALE 1 VIAL VIA NEBULIZER EVERY 4 HOURS NEEDED 75 mL 4 5 Active albuterol 108 (90 Base) MCG/ACT inhaler INHALE 2 PUFFS INTO LUNGS EVERY 4 HOURS NEEDED 18 g 6 5 Active simvastatin (Zocor) 40 MG tabletIndication s:Hypercholester emia TAKE 1 TABLET BY MOUTH EVERY DAY 90 tablet 1 5 Active lisinopril 5 MG tablet TAKE 1 TABLET BY MOUTH EVERY DAY 90 tablet 5 Active ibuprofen 600 MG tabletIndication s:Chronic pain of both knees TAKE 1 TABLET (600 MG) BY MOUTH EVERY 8 (EIGHT) HOURS IF NEEDED FOR MILD PAIN. 60 tablet 2 5 Active Active Problems Problem Noted Date Diagnosed Date Excessive and frequent menstruation 10/01/2022 IFG (impaired fasting glucose) 07/16/2016 Thrombocytosis 07/16/2016 Leukocytosis 07/16/2016 Tobacco dependence syndrome 11/08/2014 Hypercholesterolemia 12/17/2012 Severe obesity (CMS/HCC) 10/25/2011 Asthma 1970 Encounters Date Type Department Care Team Description 02/23/[address] [facility] [address] [place], [place] [id number] Gibson Evans MD Chronic pain of both knees 02/04/2025 Refill [facility] [address] [place] [address] Olive Avila MD 02/03/2025 Refill [facility] [address] [place] [address] Gibson Evans MD Hypercholesteremia 01/28/[address] [facility] [address] [place] [address] Gibson Evans MD from Last 3 Months Immunizations Immunization Administration Dates Next Due Hep B, adult 08/24/2024 Influenza injectable quadriv alent IIV4 with preservative 05/27/2017 Influenza injectable quadriv alent preservative free 02/19/2021,05/23/2020,01/27/2019,2016,06/26/2015 Influenza, seasonal, injecta ble, preservative free 01/22/2024 Pneumococcal Conjugate PCV 20 01/22/2024 Tdap 01/22/2024,11/25/2011,06/04/2007 Family History Medical History Relation Name Comments Hyperlipidemia Father Filemon day Hypertension Father Filemon day Multiple sclerosis Father Filemon day No Known Problems Maternal Grandmother Alcohol abuse Mother Ingrid day Angina Mother Ingrid day Bone cancer Mother Ingrid day Hyperlipidemia Mother Ingrid day Uterine cancer Mother Ingrid day Relation Name Status Comments Father Filemon day Maternal Grandmother Mother Ingrid day Social History Tobacco Use Types Packs/Day Years Used Date Smoking Tobacco: Every Day Cigarettes 1 36 Smokeless Tobacco: Never Alcohol Use Standard Drinks/Week Comments Not Currently 0 (1 standard drink = 0.6 oz pur e alcohol) Alcohol Answer Date Recorded Q1: How often do you have a drink containing alc ohol? 2 05/06/2024 Q2: How many drinks containi ng alcohol do you have on a typical day when you are drinking? 0 05/06/2024 Q3: How often do you have six or more drinks on one occasion? 2 05/06/2024 Depression Answer Date Recorded Patient Health Questionnaire-9 Score 0 05/06/2024 Patient Health Questionnaire-9 Score 0 05/06/2024 Last PHQ-9: Questionnaire Data Not on file 0 05/06/2024 Housing Stability Answer Date Recorded What is your housing situation today? I have christian segundo 01/14/[address] you li ve. Do you have problems with any of the following? None of the above 01/14/2024 Food Insecurity Answer Date Recorded Within the past 12 months, y ou worried that your food would run out before you got money to buy more: Never True 01/14/2024 Within the past 12 months,th e food you bought just didn't last and you didn't have enough money to get more: Never True Transportation Answer Date Recorded In the past 12 months, has l ack of transportation kept you from medical appts, meetings, work or from getting things needed for daily living? No 01/14/2024 Utilities Answer Date Recorded In the past 12 months, has t he electric, gas, oil or water company threatened to shut off services in your home? No 01/14/2024 Depression Answer Date Recorded Patient Health Questionnaire-2 Score 0 05/06/2024 Internet Access Answer Date Recorded Internet Access Q1 Yes 01/14/2024 Internet Access Q2 Not on file 01/14/2024 Comments No Sex and Gender Information Value Date Recorded Sex Assigned at Female 02/25/2022 10:22 AM EDT Legal Sex Female 10:22 AM EDT Gender Identity Female 02/25/2022 10:22 AM EDT Sexual Orientation Straight 02/25/2022 10 :22 AM EDT Last Filed Vital Signs Vital Sign Reading Time Taken Comments Blood Pressure 130/72 08/24/2024 3:09 PM EDT Pulse 103 08/24/2024 3:09 PM EDT Temperature 36.7 C (98 F) 08/24/2024 3:09 PM EDT Respiratory Rate 20 08/24/2024 3:09 PM EDT Oxygen Saturation 90% 08/24/2024 3:09 PM EDT Inhaled Oxygen Concentration - - Weight 90.3 kg (199 lb) 08/24/2024 3:09 PM EDT Height 152.4 cm (5') 08/24/2024 3:09 PM EDT Body Mass Index 38.86 08/24/2024 3:09 PM EDT Plan of Treatment Health Maintenance Due Date Last Done Comments CT Colonography 1970 Colonoscopy 1970 FIT 1970 Sigmoidoscopy 1970 Eye Exam 09/28/1979 RSV Patients and Patients Aged 60 years or older (1 - Risk 50-74 years 1-dose series) 09/28/2019 Zoster Vaccines (1 of 2) 09/28/2019 Diabetes: Hemoglobin A1C 08/04/2024 025, 01/22/2024, 09/02/2022, Additional history exists Hepatitis B Vaccines (2 of 3 - 19+ 3-dose series) 09/21/2024 08/24/2024 COVID-19 Vaccine ( season) 2024 05/03/2021, 08/07/2020, 07/10/2020 Influenza Vaccine (#1) 2024 , 02/19/2021, 05/23/2020, Additional history exists Diabetes: Urine Protein Screening 01/21/2025 01/22/2024 Lipid Panel 01/21/2025 01/22/2024 FOBT 01/30/2025 01/31/2024 Alcohol/Substance Use Screening 05/06/2025 05/06/2024 Depression Screening 05/06/2025 05/06/2024, 05/06/19 25 Diabetes: Foot Exam 05/06/2025 05/06/2024 HIV Screening 05/06/2025 Postponed from 1969 (Patient Refused) SDOH Screening 08/12/2025 08/12/2024 Disability Screening 08/17/2025 08/17/2024 Tobacco Screening 08/25/2025 08/25/2024 Lung Cancer Screening 10/18/2025 10/18/2024, 024 Mammogram 11/26/2026 11/26/2024, 11/25/2023 Colorectal Cancer Screening 01/30/2027 FIT DNA/Cologuard 01/30/2027 01/31/2024 Cervical Cancer Screening 11/16/2028 HPV/Cotest 11/16/2028 11/17/2023, 12/28, 01/17/2021, Additional history exists Pap Smear 11/16/2028 11/17/2023, 12/28, 11/14/2020 DTaP/Tdap/Td Vaccines (4 - Td or Tdap) 01/21/2034 01/22/2024, 11/25/2011, 06/04/2007 Hepatitis C Screening Completed 10/01/2022 Pneumococcal Vaccine: 50+ Years Completed 01/22/2024 HIB [...] patient's age to complete this topic Meningococcal Vaccine Aged Out No anna matt eligible based on patient's age to complete this topic RSV under 20 months Aged Out No longe r eligible based on patient's age to complete this topic Rotavirus Vaccines Aged Out No longer eligible based on patient's age to complete this topic Procedures Procedure Name Priority Date/Time Associated Diagnosis Comments BI MAMMOGRAM SCREENING TOMOSYNTHESIS BILATERAL Routine 11/26/2024 1:12 PM EDT LDCT LUNG SCREENING Routine 10/18/2024 1 :22 PM EDT POCT GLYCATED HEMOGLOBIN, TOTAL Routine 05/06/2024 1:20 PM EST Diabetes mellitus type 2, noninsulin dependent (CMS/HCC) LAB COLOGUARD COLON CANCER SCREEN Routine 01/31/2024 8:11 AM EDT Screening for colon cancer ALBUMIN, RANDOM URINE W/CREATININE Routine 01/22/2024 2:32 PM EDT Diabetes mellitus type 2, noninsulin dependent (CMS/HCC) LIPID PANEL, STANDARD Routine 01/22/2024 2:25 PM EDT Diabetes mellitus type 2, noninsulin dependent (CMS/HCC) THINPREP IMAGING PAP AND HPV MRNA E6/E7 Routine 11/17/2023 1:38 PM EDT HEPATITIS PANEL, GENERAL Routine 10/01/2022 10:57 AM EDT Elevated liver function tests from Last 3 Months or Most Recently Relevant to Health Maintenance Results * BI Mammogram Screening Tomosynthesis Bilateral (11/26/2024 1:12 PM EDT) Anatomical Region Laterality Modality Breast Bilateral Mammography 11/26/2024 1:12 PM EDT Narrative 12/07/2024 1:45 PM EDT [place] [facility] [address] [place] [address] Mammography Report Signed Patient: Amy Faustin MR#: [id number] : 1970 Acct:[id number] Age/Sex: 54 / F ADM Date: 11/26/24 Loc: HO.MAMMO Attending Dr: Gibson Evans MD Ordering Physician: Gibson Evans MD Results: 1 Negative Date of Service: 11/26/24 Follow Up: 1 Year From [facility] Mammogram Procedure(s): MM tomosynthesis screening BI Accession Number(s): [id number] cc: Gibson Evans MD EXAMINATION: MM SCREENING DIGITAL BREAST TOMOSYNTHESIS, BILATERAL CLINICAL INFORMATION: Screening. Asymptomatic. COMPARISON: Mammography: Comparison is made with available priors TECHNIQUE: Digital breast mammography with tomosynthesis is performed in both the craniocaudal and mediolateral oblique views along with computer-aided detection (CAD). FINDINGS: There are scattered areas of fibroglandular density (ACR BI-RADS breast composition Category b). There are no significant masses, abnormal calcifications, or other abnormalities. MM/MM tomosynthesis screening BI IMPRESSION: No mammographic evidence of malignancy. ASSESSMENT: BI-RADS BI-RADS 1 - Negative RECOMMENDATION: Routine annual mammography screening. 1 year F/U This examination should not preclude the clinical evaluation of a suspicious palpable abnormality. This patient's information was entered into a reminder system with a target due date for their next mammogram. Electronically signed by: Marcie Mcneil DO 12/07/2024 01:42 PM EDT RP Dictated By: Marcie Mcneil DO Signed By: <Electronically signed by Marcie Mcneil DO in OV> 12/07/24 1342 DD/ 1312 TD/TT: 11/26/24 1326 [employer]: Procedure Note Donotuseinterpreter, Image - [facility] [address] [place] [address] Mammography Report Signed Patient: Amy Faustin MMR#: [id number] : 1970Acct:[id number] Age/Sex: 54 / FADM Date: 11/26/24 Loc: HO.MAMMO Attending Dr: Gibson Evans MD Ordering Physician: Gibson Evans MDResults: 1 Negative Date of Service: 11/26/24Follow Up: 1 Year From Orig inal Mammogram Procedure(s): MM tomosynthesis screening BI Accession Number(s): [id number] cc: Gibson Evans MD EXAMINATION: MM SCREENING DIGITAL BREAST TOMOSYNTHESIS, BILATERAL CLINICAL INFORMATION: Screening. Asymptomatic. COMPARISON: Mammography: Comparison is made with available priors TECHNIQUE: Digital breast mammography with tomosynthesis is performed in both the craniocaudal and mediolateral oblique views along with computer-aided detection (CAD). FINDINGS: There are scattered areas of fibroglandular density (ACR BI-RADS breast composition Category b). There are no significant masses, abnormal calcifications, or other abnormalities. MM/MM tomosynthesis screening BI IMPRESSION: No mammographic evidence of malignancy. ASSESSMENT: BI-RADS BI-RADS 1 - Negative RECOMMENDATION: Routine annual mammography screening. 1 year F/U This examination should not preclude the clinical evaluation of a suspicious palpable abnormality. This patient's information was entered into a reminder system with a target due date for their next mammogram. Electronically signed by: Marcie Mcneil DO 12/07/2024 01:42 PM EDT RP Dictated By: Marcie Mcneil DO Signed By: <Electronically signed by Marcie Mcneil DO in OV> 12/07/24 1342 DD/ 1312 TD/TT: 11/26/24 1326 [employer]: us Gibson Evans MD IMG BI PROCEDURES Edited Re sult - Final * CT Lung Screening Low dose (10/18/2024 1:22 PM EDT) Anatomical Region Laterality Modality Lung Computed Tomogra phy 10/18/2024 1:22 PM EDT Narrative 10/18/2024 2:23 PM EDT [place] [address] CT Scan Report Signed Patient: Aym Faustin MR#: [id number] : 1970 Acct:[id number] Age/Sex: 54 / F ADM Date: 10/18/24 Loc: HO.CT Attending Dr: Jakub Varela MD Ordering Physician: Jakub Varela MD Date of Service: 10/18/24 Procedure(s): CT lung screening Accession Number(s): [id number] cc: Gibson Evans MD; Jakub Varela MD Report Number: [id number]: Total DLP = 120.00 mGy-cm EXAMINATION: CT LUNG SCREENING HISTORY: Z87.891 - Personal history of nicotine dependence TECHNIQUE: Low dose axial images were obtained from the sternal notch to upper abdomen without IV contrast per standard departmental protocol. Sagittal and coronal reformatted images were also obtained and reviewed. One or more of the following techniques was used for dose reduction: Automated exposure control, adjustment of the mA and/or kV according to patient size, use of iterative reconstruction technique. DLP: 70 mGy-cm COMPARISON: Comparison is made with the prior examination dated 10/15/2023. FINDINGS: Lung nodules: There is new confluent airspace opacity in the left upper lobe with associated volume loss and shift of the cardiomediastinal silhouette to the left. There is irregular narrowing and abrupt occlusion of the left upper lobe bronchus, highly suspicious for a mass. Again seen are scattered 2-3 mm nodules in the right upper lobe (series 4, image 66), and in the right middle lobe (series 4, images 94 and 100). There is linear subsegmental atelectasis versus scarring in the right lower lobe. Emphysema: moderate Coronary Calcification: none Aortic Arch Calcification: mild Potentially Significant Incidentals : none Additional Chest Findings: There is no pleural or pericardial effusion. No mediastinal or axillary lymphadenopathy is identified. Visualized upper abdomen: The visualized portions of the liver, spleen, and adrenals have an unremarkable unenhanced appearance. CT/CT lung screening IMPRESSION: Findings highly suspicious for a left perihilar mass causing obstruction of the left upper lobe bronchus and post-obstructive atelectasis. Further evaluation with 3 month low-dose chest CT, PET/CT scan and/or bronchoscopy is recommended. Findings were sent to Dr. Jakub Varela by secure text message on 10/18/2024 at 2:17 PM and acknowledged as read at 2:19 pm. LUNG-RADS ASSESSMENT: Lung-RADS 4A: Suspicious MANAGEMENT: 3 month LDCT, PET/CT and/or bronchoscopy Category S: N/A Electronically signed by: Austin Soares MD 10/18/2024 02:21 PM EDT RP Dictated By: Austin Soares MD Signed By: <Electronically signed by Austin Soares MD in OV> 10/18/24 1421 DD/ 1322 TD/TT: 10/18/24 1354 [employer]: Procedure Note Donotuseinterpreter, Image - 10/18/[address] [address] [address] Scan Report Signed Patient: Amy Faustin [facility]#: [id number] : 1970Acct:[id number] Age/Sex: 54 / FADM Date: 10/18/24 Loc: HO.CT Attending Dr: Jakub Varela MD Ordering Physician: Jakub Varela MD Date of Service: 10/18/24 Procedure(s): CT lung screening Accession Number(s): [id number] cc: Gibson Evans MD; Jakub Varela MD Report Number: [id number]: Total DLP = 120.00 mGy-cm EXAMINATION: CT LUNG SCREENING HISTORY: Z87.891 - Personal history of nicotine dependence TECHNIQUE: Low dose axial images were obtained from the sternal notch to upper abdomen without IV contrast per standard departmental protocol. Sagittal and coronal reformatted images were also obtained and reviewed. One or more of the following techniques was used for dose reduction: Automated exposure control, adjustment of the mA and/or kV according to patient size, use of iterative reconstruction technique. DLP: 70 mGy-cm COMPARISON: Comparison is made with the prior examination dated 10/15/2023. FINDINGS: Lung nodules: There is new confluent airspace opacity in the left upper lobe with associated volume loss and shift of the cardiomediastinal silhouette to the left. There is irregular narrowing and abrupt occlusion of the left upper lobe bronchus, highly suspicious for a mass. Again seen are scattered 2-3 mm nodules in the right upper lobe (series 4, image 66), and in the right middle lobe (series 4, images 94 and 100). There is linear subsegmental atelectasis versus scarring in the right lower lobe. Emphysema: moderate Coronary Calcification: none Aortic Arch Calcification: mild Potentially Significant Incidentals : none Additional Chest Findings: There is no pleural or pericardial effusion. No mediastinal or axillary lymphadenopathy is identified. Visualized upper abdomen: The visualized portions of the liver, spleen, and adrenals have an unremarkable unenhanced appearance. CT/CT lung screening IMPRESSION: Findings highly suspicious for a left perihilar mass causing obstruction of the left upper lobe bronchus and post-obstructive atelectasis. Further evaluation with 3 month low-dose chest CT, PET/CT scan and/or bronchoscopy is recommended. Findings were sent to Dr. Jakub Varela by secure text message on 10/18/2024 at 2:17 PM and acknowledged as read at 2:19 pm. LUNG-RADS ASSESSMENT: Lung-RADS 4A: Suspicious MANAGEMENT: 3 month LDCT, PET/CT and/or bronchoscopy Category S: N/A Electronically signed by: Austin Soares MD 10/18/2024 02:21 PM EDT RP Dictated By: Austin Soares MD Signed By: <Electronically signed by Austin Soares MD in OV> 10/18/24 1421 DD/ 1322 TD/TT: 10/18/24 1354 Super[employer]: [facility] External Provider IMG CT PROCEDURES Final Result * (ABNORMAL) POCT HGB A1C (05/06/2024 1:20 PM EST) Hemoglobin A1C 7.5(A) 4.0 - 6.0 % QC Media Lot # [id number] Lot# Expiration Date [id number] Blood 05/06/2024 1:20 PM EST Gibson Evans MD POINT OF CARE TEST ENTER/ED IT ORDERABLES Final Result * Cologuard?? colon cancer screening (01/31/2024 8:11 AM EDT) Cologuard Result Negative Negative 02/05/20 10:53 AM EDT [employer] (CLIA #:[id number]) Comment: NEGATIVE TEST RESULT. A negative Cologuard result indicates a low likelihood that a colorectal cancer (CRC) or advanced adenoma (adenomatous polyps with more advanced pre-malignant features) is present. The chance that a person with a negative Cologuard test has a colorectal cancer is less than 1 in 1500 (negative predictive value >99.9%) or has an advanced adenoma is less than 5.3% (negative predictive value 94.7%). These data are based on a prospective cross-sectional study of 10,000 individuals at average risk for colorectal cancer who were screened with both Cologuard and colonoscopy. (Laureano Morales, N Engl J Med 2014;370(14):7581-5791) The normal value (reference range) for this assay is negative. COLOGUARD RE-SCREENING RECOMMENDATION: Periodic colorectal cancer screening is an important part of preventive healthcare for asymptomatic individuals at average risk for colorectal cancer. Following a negative Cologuard result, the [place] [employer] and U.S. Multi-Society Task Force screening guidelines recommend a Cologuard re-screening interval of 3 years. References: [place] [employer] Guideline for Colorectal Cancer Screening: https://www.cancer.org/cancer/jvtqa-zmnwro-vblvtc/jalkgmeqe-umduobkmp-ahsvitm/ac s-rec ommendations.html.; Bertram DK, Darrius CR, Arlin ClementK, Colorectal Cancer Screening: Recommendations for Physicians and Patients from the U.S. Multi-Society Task Force on Colorectal Cancer Screening , Am J Gastroenterology 2017; 112:2070-4357. TEST DESCRIPTION: Composite algorithmic analysis of stool DNA-biomarkers with hemoglobin immunoassay. Quantitative values of individual biomarkers are not reportable and are not associated with individual biomarker result reference ranges. Cologuard is intended for colorectal cancer screening of adults of either sex, 45 years or older, who are at average-risk for colorectal cancer (CRC). Cologuard has been approved for use by the U.S. FDA. The performance of Cologuard was established in a cross sectional study of average-risk adults aged 50-84. Cologuard performance in patients ages 45 to 49 years was estimated by sub-group analysis of near-age groups. Colonoscopies performed for a positive result may find as the most clinically significant lesion: colorectal cancer [4.0%], advanced adenoma (including sessile serrated polyps greater than or equal to 1cm diameter) [20%] or non- advanced adenoma [31%]; or no colorectal neoplasia [45%]. These estimates are derived from a prospective cross-sectional screening study of 10,000 individuals at average risk for colorectal cancer who were screened with both Cologuard and colonoscopy. (Laureano Perez al, N Engl J Med 2014;370(14):9283-3256.) Cologuard may produce a false negative or false positive result (no colorectal cancer or precancerous polyp present at colonoscopy follow up). A negative Cologuard test result does not guarantee the absence of CRC or advanced adenoma (pre-cancer). The current Cologuard screening interval is every 3 years. ([place] [employer] and U.S. Multi-Society Task Force). Cologuard performance data in a 10,000 patient pivotal study using colonoscopy as the reference method can be accessed at the following location: www.[employer]/results. Additional description of the Cologuard test process, warnings and precautions can be found at www.colCraftsvillard.com. Stool specimen (specimen) 01/31/2024 8:11 AM EDT 02/02/2024 12:15 PM EDT Gibson Evans MD LAB MOLECULAR DIAGNOSTICS O RDERABLES Final Result Performing Organization Address City/[facility]/ZIP Co de Phone Number [employer] (CLIA #:[id number]) [place] [address], * Albumin, Random Urine W/Creatinine (01/22/2024 2:32 PM EDT) Creatinine, Urine 159.50 mg/dL [facility] Microalbumin Urine 19.0 mg/L [facility] Microalbum Creatinine Ratio Ur 11.9 <30 ug/mg cr [facility] Comment:Albumin/Creatinine R atio Reference Ranges: Normal: < 30 ug/mg creatinine Microalbuminuria: 30 - 300 ug/mg creatinineClinical Albuminuria: > 300 ug/mg creatinine Urine (Urine, Random) 01/22/2024 2:32 PM EDT 01/22/2024 6:56 PM EDT Gibson Evans MD LAB URINE ORDERABLES Final Result Performing Organization Address [facility]/ZIP Co de Phone Number [facility] [address], [place] [phone] * (ABNORMAL) Lipid Panel, Standard (01/22/2024 2:25 PM EDT) Triglycerides 164(H) <150 mg/dL [facility] Comment:Desirable Triglyceri de: less than 150 mg/dLBorderline High Triglyceride 150-199 mg/dLHigh Triglyceride: 200-499 mg/dLVery High Triglyceride: greater than or equal to 5OO mg/dL Cholesterol 164 <200 mg/dL [facility] Comment:Desirable Cholestero l: less than 200 mg/dLBorderline High Cholesterol: 200-239 mg/dLHigh Cholesterol: greater than 239 mg/dL LDL Cholesterol Calculated 97 <100 mg/dL [facility] Comment:Desirable LDL: less than 100 mg/dLNear Optimal/Above Optimal LDL: 110- 129 mg/dLBorderline High LDL: 130-159 mg/dLHigh LDL: 160-189 mg/dLVery High LDL: greater than or equal to 190 mg/dL HDL Cholesterol 35(L) >40 mg/dL [facility] Comment:Desirable HDL: great er than 40 mg/dL Note: This HDL assay may give artificially low results in patients with liver disease. Blood Venous blood specimen / Unknown 01/22/2024 2:25 PM EDT 01/22/2024 6:49 PM EDT Gibson Evans MD LAB BLOOD ORDERABLES Final Result [facility] [address] [place] [address] [phone] * ThinPrep Imaging Pap and HPV mRNA E6/E7 (11/17/2023 1:38 PM EDT) HPV nRNA E6/E7 Not Detected Not Detected [facility] Comment:Methodology: Transcr iption-Mediated AmplificationThis assay detects E6/E7 viral messenger RNA (mRNA) from 14high-risk HPV types (16,18,31,33,35,39,45,51,52,56,58,59,66,68).Cervical sources are required for HPV testing.If a vaginal source from a patient who has had atotal hysterectomy with removal of cervix wassubmitted, please contact the testing laboratoryfor alternative testing options.For additional information, please refer tohttp://education.[employer]/faq/MOC613n7(This link if provided for information/educational purposes only.)THIS TEST WAS PERFORMED AT:[facility] [place] [id number] APARICIO MD SOURCE: SEE NOTE [facility] Comment:None given Report Status: [facility] Clinical Information: SEE NOTE [facility] Comment:None given LMP: SEE NOTE [facility] Comment:NONE GIVEN Prev. PAP: SEE NOTE [facility] Comment:NONE GIVEN Prev. BX: SEE NOTE [facility] Comment:NONE GIVEN Statement Of Adequacy: SEE NOTE [facility] Comment:Satisfactory for barbara luation.Endocervical/transformation zone component absent. General Categorization: [facility] Interpretation/Result: SEE NOTE [facility] Comment:Cytology Results: Ne gative for intraepitheliallesion or malignancy. Cytology Comment SEE NOTE [facility] Comment:This Pap test has be en evaluated with computerassisted technology. Chancellor: SEE NOTE [facility] Comment:YP, CT(ASCP)CT scree catia location: [address] [address] Review Chancellor: [facility] Pathologist [facility] PAP Infection [facility] See Note SEE NOTE [facility] Comment:EXPLANATORY NOTE:The Pap is a screening test for cervical cancer. It isnot a diagnostic test and is subject to false negativeand false positive results. It is most reliable when asatisfactory sample, regularly obtained, is submittedwith relevant clinical findings and history, and whenthe Pap result is evaluated along with historic andcurrent clinical information. 11/17/2023 1:38 PM EDT 11/17/2023 7:06 PM EDT Narrative [facility] - 11/21/2023 12:34 PM EDT SEE SCANNED RESULTS IN EMR us Ruma Mccarthy CNM LAB PATHOLOGY ORDERABLES Final Result [facility] [address] [place] [address] [phone] * Hepatitis Panel, General (10/01/2022 10:57 AM EDT) Hepatitis A Antibody Total NON-REACT JESSA NON-REACT JESSA [employer] [facility] Comment: For additional information, please refer to http://[employer]/faq/WEM136 (This link is being provided for informational/ educational purposes only.) Hepatitis B Surface Antibody QL NON-REACT JESSA NON-REACT JESSA [facility] [place] [facility] Hepatitis B Surface Ag NON-REACT JESSA NON-REACT JESSA [facility] Hepatitis B Core Antibody Total NON-REACT JESSA NON-REACT JESSA [facility] C Antibody NON-REACT JESSA NON-REACT JESSA [employer] [facility] Index 0.04 <1.00 [employer] [facility] Comment: HCV antibody was non-reactive. There is no laboratory evidence of HCV infection. In most cases, no further action is required. However, if recent HCV exposure is suspected, a test for HCV RNA (test code 48745) is suggested. For additional information please refer to http://[employer]/faq/OQJ49o8 (This link is being provided for informational/ educational purposes only.) 10/01/2022 10:5 7 AM EDT 10/01/2022 10:57 AM EDT Gibson Evans MD LAB BLOOD ORDERABLES Final Result [facility] [address], [place] [address] [employer] [facility] [place] [facility] [address] [place] [phone] from Last 3 Months or Most Recently Relevant to Health Maintenance Insurance [facility] [place] [address] [facility] [place] [address] [place] [address] Care Teams Broadcast Technician Relationship Specialty Start Date End Date Gibson Evans MD [address] [place] [address] ALEENA [place] [phone] PCP - General Internal Medicine 04/28/18
--- OUTSIDE RECORDS SUMMARY | 2025-04-26 17:00 | XMS_ITS | Encounter Summary ---
Author Organization [employer] Address [address] [place] [id number] Care Team Providers Care Loft Patternmaker Name Role Phone Gibson Evans MD Primary Care Provider [phone] Reason for Visit * Reason Comments Med Refill Encounter Details Date Type Department Care Team ([facility] st Contact Info) Description 12/02/2022 Refill [facility] [address] [place] [address] Gibson Evans MD [address] [place] [address] Social History Tobacco Use Types Packs/Day Years [...] documented as of this encounter Care Teams Loft Patternmaker Relationship Specialty Start Date End Date Gibson Evans MD [address] [place] [address] PCP - General Internal Medicine 04/28/18 documented as of this encounter
--- OUTSIDE RECORDS SUMMARY | 2025-04-26 17:00 | XMS_ITS | Encounter Summary ---
Author Organization [employer] Address [address] [place] [address] [address] [place] [address] Care Team Providers Care Director Of Curriculum And Instruction Name Role Phone Gibson Evans MD Primary Care Provider [phone] Encounter Details Date Type Department Care Team ([facility] st Contact Info) Description 07/22/2022 Orders Only [facility] [address] [place] [address] Fidelina Garnre LPN Social History Tobacco Use Types Packs/Day [...] Diagnoses Not on filedocumented in this encounter Care Teams Director Of Curriculum And Instruction Relationship Specialty Start Date End Date Gibson Evans MD [address] [place] [address] PCP - General Internal Medicine 04/28/18 documented as of this encounter
== END 2025-04-26 13:34 | disposition home or self-care (01) ==
LOC: HO.HPS 13:07
PROVIDERS: PCP Internal Medicine; Visit Provider Internal Medicine Pulmonary Disease
DX: J44.9 Chronic obstructive pulmonary disease, unspecified (principal); Z87.891 Personal history of nicotine dependence; R91.8 Other nonspecific abnormal finding of lung field
CPT/HCPCS: 99214; G2211

== ENCOUNTER → 2025-04-26 13:06 | Outpatient (BNVA) | payer OTHER, SELFPAY | PROVIDERS: PCP Internal Medicine; Visit Provider Internal Medicine Pulmonary Disease | DX: J44.89 Other specified chronic obstructive pulmonary disease (principal); R91.8 Other nonspecific abnormal finding of lung field; Z87.891 Personal history of nicotine dependence | CPT/HCPCS: 99212 ==